=== PATIENT | male | born 1970 | race Caucasian/White ===

== ENCOUNTER 2022-04-03 16:50 | Inpatient (IN) | payer OTHER ==
[~2022-04-03] VITALS: Ht 177.8 cm; Wt 64.0 kg
[2022-04-03] VITALS (10 sets, daily range): BP systolic 117–133; BP diastolic 82–88
[~2022-04-03 16:50] MED LIST: SUCCINYLCHOLINE CHLORIDE 200 MG/10 ML VIAL IV ONE
[2022-04-03] MEDS ORDERED: NALOXONE 2 MG/2 ML SYRINGE ONE ×2 (16:56→17:01)
[2022-04-03] MEDS ORDERED: SUCCINYLCHOLINE CHLORIDE 200 MG/10 ML VIAL IV ONE (17:15)
[2022-04-03] MEDS ORDERED: IV NORMAL SALINE 1000 ML BAG IV ONE (17:15)
[2022-04-03] MEDS ORDERED: NALOXONE HCL 0.4 MG/ML AMPUL IV ONE (17:15)
--- NOTE | 2022-04-03 17:25 | NUR ---
Pt out of ER for Ct sca, accompained by RT and RN.
[2022-04-03] MEDS ORDERED: NALOXONE 2 MG/2 ML SYRINGE IV ONE (17:26)
[2022-04-03] MEDS ORDERED: PROPOFOL 100 ML IV ONE (17:30)
[2022-04-03] MEDS ORDERED: DEXTROSE 50% 50 ML DISP.SYRIN IV ONE (17:30)
--- NOTE | 2022-04-03 17:35 | NUR ---
PT WAS INTUBATED BY DR RICARDO (ETT 7.5 , SECURED 23CM, AC 20, Vt 500, PEEP 5, FO2 100%). PT TOLERATED TO PROCEDURE WITHOUT COMPLICATIONS . CONTINUE TO MONITOR THE PT.
[2022-04-03 17:47] LABS: CARBON DIOXIDE 19 mmol/L (21-32); CHLORIDE 104 mmol/L (98-107); CREATININE 2.6 mg/dL (0.6-1.3); GLUCOSE 67 mg/dL (74-106); UREA NITROGEN, BLOOD 18 mg/dL (7-18)
[2022-04-03 17:51] LABS: MEAN CORPUSCULAR HEMOGLOBIN 28.6 uug (23.8-33.4); MEAN CORPUSCULAR VOLUME 88.1 fL (73.0-96.2); PLATELET COUNT (AUTO) 283 K/uL (152-348)
[2022-04-03] MEDS ORDERED: DEXTROSE 50% 50 ML DISP.SYRIN ONE (17:51)
[2022-04-03] MEDS ORDERED: PROPOFOL 100 ML ONE (17:52)
[2022-04-03 17:53] LABS: ACETAMINOPHEN < 0.0 ug/mL (10-30); ALANINE AMINOTRANSFERASE 401 U/L (16-63); ALKALINE PHOSPHATASE 92 U/L (50-136); ASPARTATE AMINOTRANSFERASE 586 U/L (15-37); BILIRUBIN,DIRECT 0.2 mg/dL (0.0-0.2); BILIRUBIN,TOTAL 0.4 mg/dL (0.2-1.0); TOTAL PROTEIN, SERUM 7.1 g/dL (6.4-8.2)
[2022-04-03 18:04] LABS: ABG BASE EXCESS -17.2 mmol/L; ABG HCO3 10.5 mmol/L; ABG PCO2 31.4 mmHg (35.0-45.0); ABG PH 7.142 (7.350-7.450); ABG SITE RIGHT RADIAL; ABG TOTAL HEMOGLOBIN 17.5 G/dL (13.5-18.0); COHb 1.7 % (0.5-1.5); MetHb 0.4 % (0.0-1.5); O2Hb 91.8 % (94.0-97.0); VENT MODE VENT - A/C; VT, ABG 500 mL
[2022-04-03 18:05] LABS: ETHANOL 23 MG/DL (0-0)
[2022-04-03] MEDS ORDERED: IV NS 1000 ML 1,000 ML IV ONE (18:15)
[2022-04-03] MEDS ORDERED: NOREPINEPHRINE BITARTRATE 8 MG in IV NORMAL SALINE 242 ML IV PRN (18:45)
[2022-04-03] MEDS ORDERED: ACETAMINOPHEN 650 MG SUPP.RECT RC PRN (18:45)
[2022-04-03] MEDS ORDERED: ONDANSETRON 4 MG/2 ML VIAL IV PRN (18:45)
--- NOTE | 2022-04-03 19:08 | NUR ---
REPORT WAS GIVEN TO [employer] GUIDES ARLETH MOORE.
--- NOTE | 2022-04-03 19:20 | NUR ---
Recieved handoff report from ARLETH Vicente for continuity of care. Patient was BIB friend for respiratory disress. According to report patient has overdosed on unknown substance. Patient immediately needed intubation. 7.5, 23@the lip. AC20 VT500 PEEP5 FIO2 100%. Patient currently receiving IVF, and propofol at 5mcg/kg. Awaiting for pharmacy to compound levophed.
[2022-04-03 19:35] LABS: *BILIRUBIN,URIN NEGATIVE (NEGATIVE); *BLOOD, URINE 2+ (NEGATIVE); *CLARITY,URINE CLEAR (CLEAR); *COLOR,URINE YELLOW (YELLOW); *KETONES,URINE NEGATIVE (NEGATIVE); *UROBILINOGEN,URINE 0.2 E.U./dl (NORMAL); LEUKOCYTE ESTERASE ,URINE NEGATIVE (NEGATIVE); NITRITE, URINE NEGATIVE (NEGATIVE); UGLUCOSE NEGATIVE (NEGATIVE)
[2022-04-03 19:44] LABS: RBC,URINE 0-3 /HPF (0-3); WBC,URINE 0-3 /HPF (0-3)
[2022-04-03 19:45] LABS: BACTERIA,URINE FEW /HPF (NONE SEEN); SQUAMOUS EPITHELIAL CELL,UR FEW /HPF (NONE SEEN)
[2022-04-03] MEDS: NOREPINEPHRINE BITARTRATE 32 MG in IV NORMAL SALINE 218 ML IV PRN (19:45)
[2022-04-03 19:47] LABS: *AMPHETAMINE, URINE NEGATIVE (NEGATIVE); *CANNABINOID, URINE NEGATIVE (NEGATIVE); *COCCAINE, URINE POSITIVE (NEGATIVE); *OPIATE, URINE NEGATIVE (NEGATIVE); *PHENCYCLIDINE SCREEN,URINE NEGATIVE (NEGATIVE)
--- NOTE | 2022-04-03 20:00 | NUR ---
Triple lumen CVC established and performed by LUDMILA Acharya.
--- NOTE | 2022-04-03 21:05 | NUR ---
Patient's Levophed currently running at 0.5 with great MAP. Propofol infusing @ 20mcg. Tolerating infusions well.
--- NOTE | 2022-04-03 21:30 | NUR ---
Received report from ARLETH [facility] ED. Patient was transported from ED to CCU 3 Dx Drug overdose, Acute toxic encephalopathy via gurney accompanied by 3 staff members, without any incident. Transferred to hospital bed via draw sheet method. Placed on patient monitor, NSR with vital signs of T=98.1, HR=97, QW=243/84, O2 sat 93%. Patient is sedated, responsive to stimuli, on vent ET 7.5, LL 23 with settings of AC 20, TV 500, PEEP 10, FiO2 100%. Cough, and gag reflex noted. IV lines RH20G, RAC 19G, LH 19G, R femoral TLC patent and flushed, with ongoing IV fluids Propofol 20 mcg/kg/min, Levo @ 0.6mcg/kg/min. Martines catheter draining well to gravity. Body assessment done. Patient's belongings checked and placed at bedside. Safety measures on at all times. Will continue to monitor closely.
--- NOTE | 2022-04-03 21:34 | NUR ---
Patient transported to CCU in stable condition. Handoff report given to ARLETH Nance
[2022-04-03] MEDS: PANTOPRAZOLE SODIUM 40 MG VIAL IV SCH (21:35)
--- NOTE | 2022-04-03 21:35 | NUR ---
Spoke with Dr Tobin via telephone with new orders. Per Dr. Tobin, order sputum culture, chest xray, and ABG 7am. Noted and carried out.
[2022-04-03] MEDS: SODIUM BICARBONATE 8.4% 100 MEQ in IV NS 1000 ML 1,000 ML IV PRN (21:45)
--- NOTE | 2022-04-03 22:00 | NUR ---
NG inserted at right nare, and clamped.
--- NOTE | 2022-04-03 22:45 | NUR ---
FiO2 decreased to 80% c/o RT Lee Ann, tolerating well, O2 sat 99%. Will continue to monitor closely.
--- NOTE | 2022-04-03 22:48 | NUR ---
Patient was received orally intubated with 7.5 ET Tube ~ 23cm @ the teeth on mechanical ventilation with settings of AC 20, 500, +5 100%. Called to ED at beginning of shift for low saturation. Upon initial assessment, patient was posturing with noted agitation. Sustained low SpO2 reading~ 84%. Increased Peep to 10+ per MD Acharya. SpO2 now 92-94% on AC 20, 500,+10, and now 80%. Will titrate FiO2 as tolerated. Suctioned moderate amounts of thick balbuena/ with pink tinged secretions. Alarm parameters assessed: on/ audible. Ambu bag at bedside. Vent plugged in to red outlet. No SOB noted at this time. Will continue to monitor throughout shift.
[2022-04-03] MEDS ORDERED: PIPERACILLIN SODIUM/TAZO 3.375 GM VIAL ONE (22:54)
[2022-04-03] MEDS ORDERED: VANCOMYCIN HCL 500 MG VIAL ONE (22:54)
[2022-04-03] MEDS ORDERED: VANCOMYCIN 1000 MG VIAL ONE (22:54)
[2022-04-03] MEDS: PIPERACILLIN SODIUM/TAZOBACTAM 3.375 G in IV DEXTROSE 5% 50 ML IV SCH (23:04)
[2022-04-03] MEDS ORDERED: VANCOMYCIN IV 1,500 MG in IV NORMAL SALINE 500 ML IV ONE (23:30)
[2022-04-04] VITALS (64 sets, daily range): BP systolic 93–146; BP diastolic 54–96
[2022-04-04] MEDS ORDERED: PIPERACILLIN SODIUM/TAZOBACTAM 3.375 G in IV DEXTROSE 5% 50 ML IV SCH ×2
--- NOTE | 2022-04-04 01:15 | NUR ---
FiO2 decreased to 65% c/o RT Lee Ann, tolerating well, O2 sat 100%. Will continue to monitor closely.
[2022-04-04] MEDS: PROPOFOL 100 ML IV PRN ×2 (01:23→21:19)
[2022-04-04] MEDS ORDERED: PIPERACILLIN/TAZOBACTAM/D5W 50 ML IV ONE (01:53)
--- NOTE | 2022-04-04 05:00 | NUR ---
AM care done. Linen changed.
[2022-04-04 05:11] LABS: HEMATOCRIT 51.2 % (36.7-47.1); MEAN CORPUSCULAR HEMOGLOBIN 29.2 uug (23.8-33.4); MEAN CORPUSCULAR VOLUME 85.2 fL (73.0-96.2); PLATELET COUNT (AUTO) 322 K/uL (152-348)
[2022-04-04 05:17] LABS: BILIRUBIN,TOTAL 1.2 mg/dL (0.2-1.0); CREATININE 2.2 mg/dL (0.6-1.3); MAGNESIUM 1.9 mg/dL (1.8-2.4); PHOSPHOROUS 5.2 mg/dL (2.5-4.9); POTASSIUM 4.7 mmol/L (3.5-5.1); TOTAL PROTEIN, SERUM 7.2 g/dL (6.4-8.2)
[2022-04-04] MEDS: PIPERACILLIN SODIUM/TAZOBACTAM 3.375 G in IV DEXTROSE 5% 50 ML IV SCH (05:38)
[2022-04-04] MEDS ORDERED: NOREPINEPHRINE BITARTRATE 4 MG/4 ML VIAL IV ONE (05:50)
[2022-04-04] MEDS: NOREPINEPHRINE BITARTRATE 32 MG in IV NORMAL SALINE 218 ML IV PRN (06:08)
[2022-04-04 06:14] LABS: ABG BASE EXCESS -6.4 mmol/L; ABG HCO3 18.7 mmol/L; ABG PCO2 36.5 mmHg (35.0-45.0); ABG PH 7.327 (7.350-7.450); ABG SITE LEFT RADIAL; ABG TOTAL HEMOGLOBIN 16.8 G/dL (13.5-18.0); COHb 0.5 % (0.5-1.5); MetHb 0.4 % (0.0-1.5); O2Hb 93.1 % (94.0-97.0); VENT MODE VENT - A/C; VT, ABG 500 mL
--- NOTE | 2022-04-04 06:17 | NUR ---
FiO2 increased to 75% c/o RT Lee Ann, tolerating well, O2 sat 100%. Will continue to monitor closely.
--- NOTE | 2022-04-04 07:00 | NUR ---
Received pt. on ventilator ETT 7.5 23LL. no tachypnea with saturation above 95%. Pupils pin-pointing but DELISA. gag reflex absent cough reflex weak. pulmonary services Dr. Tobin in the unit. Received pt. on levophed running at 0.4mcg/kg/min. sbp within desired limits. NG clamped, and hobson to gravity. IV access patent.
--- NOTE | 2022-04-04 07:10 | NUR ---
Respiratory services, Dr. Tobin in the unit to see and examine pt. report given by Lee Ann Burdick Dr. in during shift report. At this time pt. taken off sedation. Pupils pin-pointing but DELISA. gag reflex absent cough reflex weak.
--- NOTE | 2022-04-04 07:56 | NUR ---
Cough&Gag reflex present. Patient tachypneic RR mid-20's and tachycardic HR in the mid to upper 120.s. .
--- NOTE | 2022-04-04 07:57 | NUR ---
Patient received on cont. oswald vent with given settings of AC RR 20, Vt 500, PEEP +10, 75% Fio2. ETT is secured via anchorfast at approx 23cm at the lip. Oral care and PRN sxn provided. Alarms on and audible. Ventilator plugged into red outlets. Ambubag at bedside. Will continue to monitor throughout shift.
[2022-04-04] MEDS: SODIUM BICARBONATE 8.4% 100 MEQ in IV NS 1000 ML 1,000 ML IV PRN (08:05)
[2022-04-04] MEDS: PANTOPRAZOLE SODIUM 40 MG VIAL IV SCH ×2 (08:05→20:13)
[2022-04-04] MEDS: HEPARIN SODIUM,PORCINE 5,000 UNITS/ML VIAL SQ SCH ×2 (08:06→20:28)
[2022-04-04] MEDS: SODIUM BICARBONATE 8.4% 100 MEQ in IV D5W 1000ML 1,000 ML IV PRN ×2 (09:37→17:34)
--- NOTE | 2022-04-04 09:46 | NUR ---
Bedside report given to Heavenly Durand.
--- NOTE | 2022-04-04 09:50 | NUR ---
critical value received from lab for troponin as 732, no new orders received from high school guidance counselor
--- NOTE | 2022-04-04 10:00 | NUR ---
Received report on patient from ARLETH Lezama. Received pt. on ventilator ETT 7.5, 23 at [facility]. respirations at 20 with saturation above 95%. pt. on levophed running at 0.1 mcg/kg/min. blood pressure within desired limits. NG clamped, and hobson to gravity. IV access patent with IV fluids running as ordered.
[2022-04-04] MEDS: PIPERACILLIN SODIUM/TAZOBACTAM 3.375 G in IV DEXTROSE 5% 100 ML IV SCH ×2 (13:53→21:14)
--- NOTE | 2022-04-04 14:45 | NUR ---
pt off levo, sustaining bp at desired level, will continue to monitor.
--- NOTE | 2022-04-04 15:20 | NUR ---
metal wire technician at bedside, will continue to monitor
--- NOTE | 2022-04-04 15:20 | NUR ---
started pt on propofol, pt was getting agitated, intermittent biting on ETT and kicking legs.
--- NOTE | 2022-04-04 18:54 | NUR ---
pt sustaining bp with MAP above 60 without pressors, pt on propofol at 10mcg, calm and sedated. ETT 7.2, 23 at lipline, AC 20, TV 500, Peep 10, FiO2 50%. hobson output 800 on my shift, pt NPO, sinus, IV access patent and intatc, will endorse to oncoming nurse.
--- NOTE | 2022-04-04 19:30 | NUR ---
ROUNDS MADE PATIENT IN BED ,ORALLY INTUBATED 7.5, ETT 23 AC 20/500/ PEEP 10 FIO2 50%.SUCTION VIA ETT AND VIA MOUTH MINIMAL TO SMALL SECRETIONS . SEDATED ON PROPOFOL . PATIENT TOLERATING VENT SETTING SATURATING 99 TO 100% RR 20. AFEBRILE 98.8 F.SR ON THE HEART MONITOR .
[2022-04-04] MEDS ORDERED: NOREPINEPHRINE BITARTRATE 8 MG in IV NORMAL SALINE 242 ML IV PRN (20:00)
--- NOTE | 2022-04-04 20:00 | NUR ---
INCREASES PROPOFOL C/O PATIENT BITTING THE ETT TUBE AND MOVING BLE ,PATIENT EDUCATED AND DOESN'T FOLLOW COMMANDS .
--- NOTE | 2022-04-04 20:15 | NUR ---
ID CASINO CASHIER NERA CAME AND VISITED PATIENT UPDATED CASINO CASHIER PATIENTS CONDITION .V/S MEDICATION AND LINES .
--- NOTE | 2022-04-04 21:30 | NUR ---
COLLECTED URINE AND SEND TO LAB ,FOR URINE SODIUM,UA,PROTEIN .
[2022-04-05] VITALS (24 sets, daily range): BP systolic 92–116; BP diastolic 56–75
[2022-04-05] MEDS: SODIUM BICARBONATE 8.4% 100 MEQ in IV D5W 1000ML 1,000 ML IV PRN ×3 (00:57→19:05)
[2022-04-05] MEDS: PROPOFOL 100 ML IV PRN ×4 (02:59→21:04)
[2022-04-05 03:26] LABS: *BILIRUBIN,URIN NEGATIVE (NEGATIVE); *BLOOD, URINE NEGATIVE (NEGATIVE); *COLOR,URINE YELLOW (YELLOW); *KETONES,URINE NEGATIVE (NEGATIVE); LEUKOCYTE ESTERASE ,URINE NEGATIVE (NEGATIVE); NITRITE, URINE NEGATIVE (NEGATIVE); PH,URINE 7.5 (5.0-8.0); UGLUCOSE NEGATIVE (NEGATIVE)
[2022-04-05 03:28] LABS: *CLARITY,URINE HAZY (CLEAR)
[2022-04-05 03:40] LABS: *CREATININE,URINE 182.6 mg/dL (30-125); *URINE TOTAL PROTEIN RANDOM 35.8 mg/dL (<150/24HR)
[2022-04-05 03:45] LABS: BACTERIA,URINE NONE SEEN /HPF (NONE SEEN); RBC,URINE 0-3 /HPF (0-3); SQUAMOUS EPITHELIAL CELL,UR FEW /HPF (NONE SEEN); WBC,URINE 0-3 /HPF (0-3)
[2022-04-05] MEDS: PIPERACILLIN SODIUM/TAZOBACTAM 3.375 G in IV DEXTROSE 5% 100 ML IV SCH ×3 (05:08→21:03)
[2022-04-05 05:19] LABS: HEMATOCRIT 40.1 % (36.7-47.1); MEAN CORPUSCULAR HEMOGLOBIN 29.2 uug (23.8-33.4); MEAN CORPUSCULAR VOLUME 83.9 fL (73.0-96.2); PLATELET COUNT (AUTO) 148 K/uL (152-348)
[2022-04-05 05:48] LABS: BILIRUBIN,TOTAL 1.4 mg/dL (0.2-1.0); CREATININE 1.1 mg/dL (0.6-1.3); POTASSIUM 3.1 mmol/L (3.5-5.1); TOTAL PROTEIN, SERUM 5.7 g/dL (6.4-8.2)
[2022-04-05] MEDS ORDERED: REMEDY ESSENTIAL ZINC PASTE 113 GM TOP PRN (06:00)
[2022-04-05] MEDS ORDERED: POTASSIUM CHLORIDE 20 MEQ POWDER PACKET GT ONE (06:15)
[2022-04-05 06:27] LABS: ABG BASE EXCESS 3.7 mmol/L; ABG HCO3 25.2 mmol/L; ABG PCO2 29.4 mmHg (35.0-45.0); ABG PH 7.551 (7.350-7.450); ABG PO2 77.3 mmHg (75.0-100.0); ABG SITE LEFT RADIAL; ABG TOTAL HEMOGLOBIN 14.2 G/dL (13.5-18.0); COHb 0.3 % (0.5-1.5); MetHb 0.2 % (0.0-1.5); O2Hb 95.9 % (94.0-97.0); VENT MODE VENT - A/C; VT, ABG 500 mL
[2022-04-05] MEDS: POTASSIUM CHLORIDE 50 ML IV SCH ×4 (06:51→09:35)
[2022-04-05] MEDS ORDERED: VANCOMYCIN IV 1,250 MG in IV DEXTROSE 5% 250 ML IV ONE (08:00)
[2022-04-05] MEDS ORDERED: VANCOMYCIN IV 1,250 MG in IV DEXTROSE 5% 250 ML IV SCH (08:00)
[2022-04-05] MEDS: PANTOPRAZOLE SODIUM 40 MG VIAL IV SCH ×2 (08:20→20:32)
[2022-04-05] MEDS: REMEDY ESSENTIAL ZINC PASTE 113 GM TOP SCH ×2 (08:20→20:33)
[2022-04-05] MEDS: HEPARIN SODIUM,PORCINE 5,000 UNITS/ML VIAL SQ SCH ×2 (08:21→21:01)
--- NOTE | 2022-04-05 09:18 | NUR ---
RECEIVED PT ON A/C 20 500 PEEP+10 FIO2 50% TIRTATED FIO2 DOWN TO 40%. CHANGED PEEP DOWN TO PEEP OF 8 PER MD ORDERS. PT SHAE WELL AT THIS TIME.
[2022-04-05] MEDS ORDERED: NEUTRA PHOS PACKET NG ONE (15:30)
[2022-04-05] MEDS: ACETAMINOPHEN 650 MG/20.3 ML LIQUID UDC GT PRN ×2 (15:48→22:00)
[2022-04-05 17:08] LABS: PHOSPHOROUS 2.1 mg/dL (2.5-4.9)
--- NOTE | 2022-04-05 17:57 | NUR ---
patient has been titrated down on vent from 50& fio2 and peep of 10 to end of shift 35% fio2 and peep of 5. Patient saturates 97% tolerating well changes. dietary consult was done started on feedings with Jevity 1.2 @ 10ml initially starting rate to increase by 10ml to 20ml q8 hours as tolerated. social insurance analyst also to follow up with contacting family members.
[2022-04-05] MEDS: JEVITY 1.2 1000 ML LIQUID NG PRN (21:53)
--- NOTE | 2022-04-05 22:09 | NUR ---
GIVEN TYLENOL PRN C/O TEMP 100.0 F COOLING MEASURES DONE PLACED ICE PACKS TO BILATERAL ARM PIT AND GROIN AREA .
[2022-04-06] VITALS (15 sets, daily range): BP systolic 93–114; BP diastolic 55–77
[2022-04-06] MEDS: PROPOFOL 100 ML IV PRN ×7 (02:08→23:36)
--- NOTE | 2022-04-06 04:28 | NUR ---
PATIENT ON CONT BRUCE VENT WITH 7.5 ET/TUBE IN PLACE AND SECURED WITH ANCHOR FAST, MOVE Q2 HOURS, PT IS SEDATED, DOES COUGH AND HAS SLIGHT BLOODY TINGE SECRETIONS, AND LAVAGED WITH NS, NO VENT CHANGES MADE, ORAL CARE DONE, CURRENT VENT SETTINGS, A/C 20,500ML, PEEP5, FIO2 @ 35%,MOSTLY WITH CONTROLLED VENTILATION, CHANGE HME, ABG DUE BEFORE 0700. Clifton CARBAJALP Addendum: 04/06/22 at 0431 by STAR SHERIDAN RT Amended: Links added.
[2022-04-06 05:06] LABS: HEMATOCRIT 41.1 % (36.7-47.1); MEAN CORPUSCULAR VOLUME 84.1 fL (73.0-96.2); PLATELET COUNT (AUTO) 154 K/uL (152-348)
[2022-04-06 05:15] LABS: BILIRUBIN,DIRECT 1.2 mg/dL (0.0-0.2); BILIRUBIN,TOTAL 2.7 mg/dL (0.2-1.0); CREATININE 1.1 mg/dL (0.6-1.3); MAGNESIUM 1.8 mg/dL (1.8-2.4); PHOSPHOROUS 2.5 mg/dL (2.5-4.9); POTASSIUM 3.4 mmol/L (3.5-5.1); TOTAL PROTEIN, SERUM 6.1 g/dL (6.4-8.2)
[2022-04-06] MEDS: SODIUM BICARBONATE 8.4% 100 MEQ in IV D5W 1000ML 1,000 ML IV PRN ×2 (05:16→16:10)
[2022-04-06] MEDS: PIPERACILLIN SODIUM/TAZOBACTAM 3.375 G in IV DEXTROSE 5% 100 ML IV SCH ×3 (05:16→21:22)
[2022-04-06] MEDS: REMEDY ESSENTIAL ZINC PASTE 113 GM TOP SCH ×2 (05:16→20:34)
[2022-04-06 05:59] LABS: ABG BASE EXCESS 0.4 mmol/L; ABG HCO3 23.2 mmol/L; ABG PCO2 32.6 mmHg (35.0-45.0); ABG PH 7.471 (7.350-7.450); ABG PO2 67.7 mmHg (75.0-100.0); ABG SITE LEFT RADIAL; ABG TOTAL HEMOGLOBIN 14.5 G/dL (13.5-18.0); COHb 0.6 % (0.5-1.5); MetHb 0.1 % (0.0-1.5); VENT MODE VENT - A/C; VT, ABG 500 mL
[2022-04-06] MEDS ORDERED: POTASSIUM CHLORIDE 20 MEQ POWDER PACKET GT ONE ×2 (07:15→09:15)
[2022-04-06] MEDS: PANTOPRAZOLE SODIUM 40 MG VIAL IV SCH ×2 (09:04→20:33)
[2022-04-06] MEDS: HEPARIN SODIUM,PORCINE 5,000 UNITS/ML VIAL SQ SCH ×2 (09:04→20:35)
[2022-04-06] MEDS: ACETAMINOPHEN 650 MG/20.3 ML LIQUID UDC GT PRN ×2 (13:14→22:46)
--- NOTE | 2022-04-06 13:18 | NUR ---
low grade fever, cooling measures initiated and tylenol given, will continue to monitor.
--- NOTE | 2022-04-06 13:25 | NUR ---
Pt received on continuous mechanical ventilation via 7.5 ETT secured at 23cm @ the lip. Pt rec'd on Wilson vent with ordered settings of A/C 20, VT 500, PEEP +5, FIO2 35% . Pt tolerating vent settings well. No signs or symptoms or respiratory distress noted. Bag/valve/mask at bedside. HME changed. Vent plugged into emergency red outlet. Will continue to monitor.
--- NOTE | 2022-04-06 13:26 | NUR ---
Discharge planning consult requested for search for family contacts. Pt. is a 51-year-old male who was admitted to [facility] on 04/03/2022 for respiratory failure. communications planner went to meet with pt. in the CCU. Pt. was intubated and sedated. Pt.s person to notify is Christopher ([phone]). communications planner called Christopher ([phone]) who stated that he does not have much information on the pt. Christopher [phone] stated that the pt. has family in [place] and a mother in [place]. Christopher ([phone]) stated that the pt. may be on parole. communications planner called the [facility] ([phone]) to gather information on the pt. The [facility] ([phone]) stated that they had no history of this pt. in their system. communications planner was unable to find any further family contact information about the pt. Information provided to Diann.
--- NOTE | 2022-04-06 19:39 | NUR ---
Report given to ARLETH Du. SR at 67. Sedated and intubated; settings are as follows TV at 400, PEEP of 5, rate or 14 and FiO2 30%. NGT feeding Jevity 1.2, tolerating well with small amount of residual. Martines care provided, good urine output- clear and yellow color. jail assessment done, no new skin break down noted. Safety and comfort measures maintained t/o shift. All meds given as ordered. Addendum: 04/06/22 at 1948 by LESLIE CACERES RN VENT SETTINGS: Rate of 20, TV 500, PEEP 5 and 30% FiO2.
--- NOTE | 2022-04-06 20:00 | NUR ---
ROUNDS MADE PATIENT IN BED ORALLY INTUBATED 20/500/PEEP 5 FIO2 30%.MO RESPIRATORY DISTRESS ,SATURATION 100%.
[2022-04-06] MEDS: LORAZEPAM 2 MG/1 ML VIAL IV PRN (20:46)
--- NOTE | 2022-04-06 20:48 | NUR ---
Patient received orally intubated with a 7. Ettube ~ 23cm lipline. Currently tolerating vent settings of AC 20, 500, +5peep, 30% FiO2. No signs of respiratory distress noted at this time. Suctioned small to moderate amounts of thick balbuena secretions, no SOB noted. Alarm parameters assessed: on/audible. Vent plugged in to red outlet. Ambubag at bedside. Will continue to monitor throughout shift.
[2022-04-06] MEDS: POTASSIUM CHLORIDE 20 MEQ in IV NS 1000 ML 1,000 ML IV PRN (21:24)
--- NOTE | 2022-04-06 21:30 | NUR ---
SUCTION VIA ETT AND VIA MOUTH MINIMAL SECRETIONS VIA THE ETT,ORALLY LARGE .WHEN OFF SEDATION PATIENT KEEPS ON COUGHING VERY STRONG COUGH AND GAG REFLEX . PROPOFOL ADJUSTED ACCORDING TO COMFORT . TF IN PROGRESS JEVITY AT 40 ML/HR GOAL AT 65 ML/HR .
--- NOTE | 2022-04-06 22:08 | NUR ---
GIVEN PRN ATIVAN ,PATIENT RR 30 AND KEEPS BITING THE ETT WILL MONITOR TO REDUCED THE PROPOFOL RATE TOLERATED .
[2022-04-07] VITALS (24 sets, daily range): BP systolic 93–126; BP diastolic 57–84
--- NOTE | 2022-04-07 | NUR ---
TURNED AND REPOSITION PATIENT ,OFFLOADED BACK WITH PILLOWS AND ELEVATED UPPER AND LOWER EXTREMITIES WITH PILLOWS ,SCDS USED TO BILATERAL LOWER LEGS.
[2022-04-07] MEDS: PROPOFOL 100 ML IV PRN ×7 (02:26→21:42)
--- NOTE | 2022-04-07 04:30 | NUR ---
AM CARE DONE BATH PATIENT CHANGED SOILED LINENS AND GOWN . ESPARZA CARE DONE AND ORAL CARE .
[2022-04-07 04:56] LABS: HEMATOCRIT 39.8 % (36.7-47.1); MEAN CORPUSCULAR HEMOGLOBIN 28.9 uug (23.8-33.4); MEAN CORPUSCULAR VOLUME 84.5 fL (73.0-96.2); PLATELET COUNT (AUTO) 152 K/uL (152-348)
[2022-04-07] MEDS: PIPERACILLIN SODIUM/TAZOBACTAM 3.375 G in IV DEXTROSE 5% 100 ML IV SCH ×3 (05:19→21:24)
[2022-04-07 06:02] LABS: BILIRUBIN,DIRECT 1.7 mg/dL (0.0-0.2); BILIRUBIN,TOTAL 2.6 mg/dL (0.2-1.0); CREATININE 1.1 mg/dL (0.6-1.3); MAGNESIUM 1.9 mg/dL (1.8-2.4); PHOSPHOROUS 4.2 mg/dL (2.5-4.9); POTASSIUM 3.5 mmol/L (3.5-5.1); TOTAL PROTEIN, SERUM 6.1 g/dL (6.4-8.2)
[2022-04-07 06:28] LABS: ABG BASE EXCESS -4.2 mmol/L; ABG PCO2 26.2 mmHg (35.0-45.0); ABG PH 7.455 (7.350-7.450); ABG PO2 72.9 mmHg (75.0-100.0); ABG SITE LEFT RADIAL; ABG TOTAL HEMOGLOBIN 14.2 G/dL (13.5-18.0); COHb 0.6 % (0.5-1.5); MetHb 0.2 % (0.0-1.5); O2Hb 94.1 % (94.0-97.0); VENT MODE VENT - A/C; VT, ABG 500 mL
[2022-04-07 07:06] LABS: ALBUMIN 2.6 g/dL (2.9-4.4); ALPHA-1-GLOBULIN 0.2 g/dL (0.0-0.4); ALPHA-2-GLOBULIN 0.6 g/dL (0.4-1.0); BETA GLOBULIN 0.8 g/dL (0.7-1.3); GAMMA GLOBULIN 0.9 g/dL (0.4-1.8); GLOBULIN, TOTAL 2.6 g/dL (2.2-3.9); M-SPIKE Not Observed g/dL (Not Observed)
--- NOTE | 2022-04-07 08:15 | NUR ---
PT.WAS SEEN BY WITH NEW ORDERS.
[2022-04-07] MEDS: REMEDY ESSENTIAL ZINC PASTE 113 GM TOP SCH ×2 (08:36→21:28)
[2022-04-07] MEDS: PANTOPRAZOLE SODIUM 40 MG VIAL IV SCH (08:36)
[2022-04-07] MEDS: HEPARIN SODIUM,PORCINE 5,000 UNITS/ML VIAL SQ SCH ×2 (08:36→21:25)
[2022-04-07] MEDS: JEVITY 1.2 1000 ML LIQUID NG PRN (08:52)
[2022-04-07] MEDS: POTASSIUM CHLORIDE 20 MEQ in IV NS 1000 ML 1,000 ML IV PRN (10:05)
--- NOTE | 2022-04-07 16:20 | NUR ---
family at beside,updated with pt.condition and plan of care.
--- NOTE | 2022-04-07 18:52 | NUR ---
Pt. was seen by .
[2022-04-07] MEDS: PANTOPRAZOLE ORAL SUSPENSION 40 MG SUSPDR.PKT NG SCH (21:26)
[2022-04-08] VITALS (22 sets, daily range): BP systolic 98–143; BP diastolic 57–88
[2022-04-08] MEDS: PROPOFOL 100 ML IV PRN ×6 (02:14→21:55)
[2022-04-08] MEDS: POTASSIUM CHLORIDE 20 MEQ in IV NS 1000 ML 1,000 ML IV PRN ×2 (02:19→16:38)
[2022-04-08 05:23] LABS: CREATININE 0.9 mg/dL (0.6-1.3); MAGNESIUM 1.9 mg/dL (1.8-2.4); PHOSPHOROUS 3.8 mg/dL (2.5-4.9); POTASSIUM 3.8 mmol/L (3.5-5.1)
[2022-04-08 05:34] LABS: HEMATOCRIT 42.4 % (36.7-47.1); MEAN CORPUSCULAR HEMOGLOBIN 29.4 uug (23.8-33.4); MEAN CORPUSCULAR VOLUME 84.4 fL (73.0-96.2); PLATELET COUNT (AUTO) 168 K/uL (152-348)
[2022-04-08] MEDS: PIPERACILLIN SODIUM/TAZOBACTAM 3.375 G in IV DEXTROSE 5% 100 ML IV SCH ×3 (06:39→21:10)
[2022-04-08 07:19] LABS: ABG BASE EXCESS -3.8 mmol/L; ABG HCO3 17.5 mmol/L; ABG PCO2 23.6 mmHg (35.0-45.0); ABG PH 7.487 (7.350-7.450); ABG PO2 68.7 mmHg (75.0-100.0); ABG SITE LEFT RADIAL; ABG TOTAL HEMOGLOBIN 14.7 G/dL (13.5-18.0); COHb 0.6 % (0.5-1.5); MetHb 0.2 % (0.0-1.5); O2Hb 93.4 % (94.0-97.0); VENT MODE VENT - A/C; VT, ABG 500 mL
--- NOTE | 2022-04-08 08:24 | NUR ---
Pt. was seen by
[2022-04-08] MEDS: REMEDY ESSENTIAL ZINC PASTE 113 GM TOP SCH ×2 (08:46→20:05)
[2022-04-08] MEDS: JEVITY 1.2 1000 ML LIQUID NG PRN (08:46)
[2022-04-08] MEDS: PANTOPRAZOLE ORAL SUSPENSION 40 MG SUSPDR.PKT NG SCH ×2 (08:47→20:05)
[2022-04-08] MEDS: HEPARIN SODIUM,PORCINE 5,000 UNITS/ML VIAL SQ SCH ×2 (08:48→20:04)
--- NOTE | 2022-04-08 10:19 | NUR ---
Pt.was seen by . with new orders.
--- NOTE | 2022-04-08 18:46 | NUR ---
Pt. was seen by .
[2022-04-08] MEDS: LORAZEPAM 2 MG/1 ML VIAL IV PRN (20:04)
--- NOTE | 2022-04-08 20:04 | NUR ---
PATIENT RR 28 HYPERVENTILATING OVER THE VENTILATOR TACHYPNEIC GIVEN PRN ATIVAN .ETT AC 14/500/30% PEEP 5 MINIMAL SECRETIONS VIA ETT ,MODERATE TO LARGE ORALLY . SR TO SB ON THE HEART MONITOR . RIGHT NARE NGT TF IN PROGRESS JEVITY 60 ML/HR CHECKED RESIDUAL VERY SMALL 10 ML ONLY FLUSHED NGT . WILL CONTINUE TO MONITOR V/S ,VENT ,SEDATION .
[2022-04-08] MEDS: ACETAMINOPHEN 650 MG/20.3 ML LIQUID UDC GT PRN (23:18)
--- NOTE | 2022-04-08 23:18 | NUR ---
GIVEN PRN TYLENOL C/O PAIN PATIENT RR 28 AND COUGHING VERY HARD AND BITING ETT .SUCTION VIA ETT AND VIA MOUTH . CONTINUE TO MONITOR V/S LEVELS OF COMFORT .
[2022-04-09] VITALS (24 sets, daily range): BP systolic 93–130; BP diastolic 53–74
--- NOTE | 2022-04-09 02:00 | NUR ---
TURNED AND REPOSITION PATIENT, SUCTION PATIENT VIA ETT AND VIA MOUTH WITH STRONG COUGH AND POSITIVE GAG REFLEX
[2022-04-09] MEDS: PROPOFOL 100 ML IV PRN ×7 (02:04→21:33)
--- NOTE | 2022-04-09 03:30 | NUR ---
MORNING CARE DONE ,BATH PATIENT ,CHANGED SOILED LINENS AND GOWN . F/C AND ORAL CARE DONE . TURNED AND REPOSITION PATIENT OFFLOADED BACK WITH PILLOWS AND HEELS OFFLOADED WITH PILLOW.SCD USED TO BILATERAL HEELS PATIENT ON KCI MATTRESS .
--- NOTE | 2022-04-09 04:26 | NUR ---
PATIENT ON CONT BRUCE VENT WITH 7.[address] SECURED WITH ANCHOR FAST, MOVE Q2 HOURS, SETTINGS,A/C14,500ML,PEEP5, FIO2 @ 30%, NO VENT CHANGES MADE , STRONG COUGH, PT TENDS TO BREATH RAPID, AFTER SUCTIONING HIM, TURNS ARMS SLIGHTLY IN WHEN SUCTIONING: GOOD AERATIONS, SUCTIONED LIGHT PALE YELL TINGE SECRETIONS, AND SUCTION MOUTH WITH YANKAUER, CHANGE HME, NO VENT CHANGES MADE AT THIS TIME, NO ABG ORDER .Clifton CARBAJALP Addendum: 04/09/22 at 0431 by STAR SHERIDAN RT Amended: Links added.
--- NOTE | 2022-04-09 04:30 | NUR ---
JOB PRINTER AT B/S TO DRAW PATIENT AM LABS .PATIENT NO ORDERS FOR AM LABS ADDED LABS FOR THIS MORNING . BASIC LABS . CBC/BMP/MG/PHOS .
--- NOTE | 2022-04-09 05:15 | NUR ---
WORKERS COMPENSATION CONSULTANT AT B/S FOR PORTABLE CHEST XRAY .
[2022-04-09] MEDS: PIPERACILLIN SODIUM/TAZOBACTAM 3.375 G in IV DEXTROSE 5% 100 ML IV SCH ×3 (05:17→21:07)
[2022-04-09 05:31] LABS: HEMATOCRIT 40.8 % (36.7-47.1); MEAN CORPUSCULAR HEMOGLOBIN 28.6 uug (23.8-33.4); MEAN CORPUSCULAR VOLUME 84.3 fL (73.0-96.2); PLATELET COUNT (AUTO) 171 K/uL (152-348)
[2022-04-09 05:50] LABS: CREATININE 0.8 mg/dL (0.6-1.3); MAGNESIUM 1.9 mg/dL (1.8-2.4); PHOSPHOROUS 3.9 mg/dL (2.5-4.9); POTASSIUM 3.7 mmol/L (3.5-5.1)
[2022-04-09] MEDS: POTASSIUM CHLORIDE 20 MEQ in IV NS 1000 ML 1,000 ML IV PRN ×2 (06:03→20:01)
[2022-04-09] MEDS: HEPARIN SODIUM,PORCINE 5,000 UNITS/ML VIAL SQ SCH ×2 (08:32→20:04)
[2022-04-09] MEDS: PANTOPRAZOLE ORAL SUSPENSION 40 MG SUSPDR.PKT NG SCH ×2 (08:37→20:03)
[2022-04-09] MEDS: REMEDY ESSENTIAL ZINC PASTE 113 GM TOP SCH ×2 (08:40→20:04)
[2022-04-09] MEDS: LORAZEPAM 2 MG/1 ML VIAL IV PRN (15:33)
--- NOTE | 2022-04-09 20:00 | NUR ---
patient in bed orally intubated on ac 14/500/30% peep 5, patient on propofol drip for sedation . suction via ett and via mouth patient with very strong cough and gag reflex . tolerating vent saturation 100 % and no s/s of respiratory distress . tf in progress via the right nare ngt on Jevity at 65 cc/hr its at goal . f/c to bsd with good urinary output ,urine yellowish green in color .
[2022-04-09] MEDS: ACETAMINOPHEN 650 MG/20.3 ML LIQUID UDC GT PRN (20:34)
[2022-04-09] MEDS: IV NORMAL SALINE 250 ML IV PRN (20:35)
--- NOTE | 2022-04-09 20:57 | NUR ---
PATIENT ON CONT BRUCE VENT WITH ANCHOR FAST IN PLACE AND SECURED, PT WITH 7.5 ET/TUBE IN PLACE; MOVE Q2 HOURS, VENT SETTINGS, A/C 14,500ML,PEEP5,FIO2 @ 30%, PT TENDS TO BREATH FAST AFTER SUCTIONING , STRONG SPASMODIC COUGH, SUCTION MOUTH WITH YANKAUER, VERY PROD. NO VENT CHANGES MADE, CHANGE HME AND BUCIO, ALL VENT ALARMS GOOD. Clifton CARBAJALP Addendum: 04/09/22 at 2058 by STAR SHERIDAN RT Amended: Links added.
[2022-04-10] VITALS (26 sets, daily range): BP systolic 79–137; BP diastolic 44–81
[2022-04-10] MEDS: PROPOFOL 100 ML IV PRN ×8 (00:29→22:35)
--- NOTE | 2022-04-10 00:30 | NUR ---
turned and reposition patient . continue to monitor v/s patient with low grade temp 99.1 F. placed cold ice packs to bilateral groin and bilateral armpit .
--- NOTE | 2022-04-10 03:31 | NUR ---
inserted a new NGT the tube feeding pump keeps on beeping and its occluded ,tried flushing the ngt but its clog and unable to flushed will order xray to verify placement .
--- NOTE | 2022-04-10 04:30 | NUR ---
emergency vehicle operations instructor at b/s for patient am labs .
[2022-04-10] MEDS: PIPERACILLIN SODIUM/TAZOBACTAM 3.375 G in IV DEXTROSE 5% 100 ML IV SCH (05:06)
[2022-04-10 05:28] LABS: BILIRUBIN,TOTAL 0.8 mg/dL (0.2-1.0); CREATININE 0.8 mg/dL (0.6-1.3); HEMATOCRIT 42.3 % (36.7-47.1); MAGNESIUM 1.9 mg/dL (1.8-2.4); MEAN CORPUSCULAR HEMOGLOBIN 29.3 uug (23.8-33.4); MEAN CORPUSCULAR VOLUME 84.7 fL (73.0-96.2); PHOSPHOROUS 3.6 mg/dL (2.5-4.9); PLATELET COUNT (AUTO) 188 K/uL (152-348); POTASSIUM 3.7 mmol/L (3.5-5.1); TOTAL PROTEIN, SERUM 6.9 g/dL (6.4-8.2)
--- NOTE | 2022-04-10 05:34 | NUR ---
xray at b/s for patient chest xray and for verification of the new NGT tube .
[2022-04-10] MEDS: PANTOPRAZOLE ORAL SUSPENSION 40 MG SUSPDR.PKT NG SCH ×2 (08:36→21:04)
[2022-04-10] MEDS: HEPARIN SODIUM,PORCINE 5,000 UNITS/ML VIAL SQ SCH ×2 (08:37→21:05)
[2022-04-10] MEDS: REMEDY ESSENTIAL ZINC PASTE 113 GM TOP SCH ×2 (08:37→21:05)
[2022-04-10] MEDS ORDERED: LORAZEPAM 2 MG/1 ML VIAL IV PRN (08:45)
[2022-04-10] MEDS: POTASSIUM CHLORIDE 20 MEQ in IV NS 1000 ML 1,000 ML IV PRN ×2 (10:08→23:53)
[2022-04-10] MEDS ORDERED: IV NORMAL SALINE 500 ML IV ONE (10:30)
[2022-04-10] MEDS ORDERED: LORAZEPAM 1 MG TABLET GT PRN (12:45)
--- NOTE | 2022-04-10 20:00 | NUR ---
sr 62 to sr 58 on the heart monitor , tolerating vent settings with very strong cough and gag reflex,patient unable to open eyes doesn't not follow commands ,needs to be sedated gets restless and coughing hard on the ventilator .
--- NOTE | 2022-04-10 21:00 | NUR ---
due medication crushed and given via the ngt ,patient tolerating Jevity 1.2 at 65 ml/hr ,flushed ngt with water .
--- NOTE | 2022-04-10 21:22 | NUR ---
0PATIENT ON CONT BRUCE VENT WITH 7.5 ET/TUBE IN PLACE AND SECURED WITH ANCHOR FAST, MOVED Q2 HOURS, PT WITH RAPID SHALLOW BREATHING , ABD EFFORT ENGAGED IN BREATHING, SOMEWHAT POSTURING WHEN COUGHING, STRONG COUGH, VERY PROD, GARVEY, AND PALE YELL. TINGE SECRETIONS, AND SUCTION MOUTH WITH YANKAUER, NO VENT CHANGES MADE, PT IS SEDATED, VENT SETTINGS, A/C 14,VT 500ML, PEEP5, FIO2 @ 30%.Clifton SHERIDAN RCP Addendum: 04/10/22 at 2125 by STAR SHERIDAN RT Amended: Links added.
--- NOTE | 2022-04-10 22:43 | NUR ---
turned and reposition patient offloaded back with pillows ,heels off bed and scds used to ble .
[2022-04-11] VITALS (24 sets, daily range): BP systolic 82–119; BP diastolic 43–75
[2022-04-11] MEDS: PROPOFOL 100 ML IV PRN ×6 (01:44→23:03)
--- NOTE | 2022-04-11 03:30 | NUR ---
bath patient ,changed soiled linens and gown ,oral care done and hobson care dome . turned and reposition .
[2022-04-11 05:18] LABS: HEMATOCRIT 42.5 % (36.7-47.1); MEAN CORPUSCULAR HEMOGLOBIN 29.1 uug (23.8-33.4); MEAN CORPUSCULAR VOLUME 84.4 fL (73.0-96.2); PLATELET COUNT (AUTO) 209 K/uL (152-348)
[2022-04-11 05:26] LABS: CREATININE 0.9 mg/dL (0.6-1.3); MAGNESIUM 1.7 mg/dL (1.8-2.4); PHOSPHOROUS 3.8 mg/dL (2.5-4.9); POTASSIUM 3.8 mmol/L (3.5-5.1)
[2022-04-11] MEDS: PANTOPRAZOLE ORAL SUSPENSION 40 MG SUSPDR.PKT NG SCH ×2 (08:19→21:36)
[2022-04-11] MEDS: HEPARIN SODIUM,PORCINE 5,000 UNITS/ML VIAL SQ SCH ×2 (08:20→21:36)
[2022-04-11] MEDS: REMEDY ESSENTIAL ZINC PASTE 113 GM TOP SCH ×2 (08:21→21:36)
[2022-04-11] MEDS ORDERED: MAGNESIUM OXIDE 400 MG TABLET GT ONE (09:45)
--- NOTE | 2022-04-11 10:50 | NUR ---
Dr. Grande in the unit and wants weaning to be done RT at bedside sedation turned down Cpap initiated at this time
--- NOTE | 2022-04-11 11:50 | NUR ---
Patient diaphoretic, tachypnea, SOB, patient placed back on sedation and back on ventilator AC settings.
[2022-04-11] MEDS: QUETIAPINE FUMARATE 25 MG TABLET NG SCH ×2 (14:14→18:48)
[2022-04-11] MEDS: POTASSIUM CHLORIDE 20 MEQ in IV NS 1000 ML 1,000 ML IV PRN (14:32)
--- NOTE | 2022-04-11 18:08 | NUR ---
PT REC'D VENT TO ETT, TOLERATING FULL VENT SUPPORT WELL, WEANING PERFORMED DURING SHIFT PER DR BRENNAN, SEDATION DECREASED CPAP/PS TRIAL AFTER 40MINS PT BECAME TACHYPNIC AND DIAPHORETIC, PT PLACED TO FULL VENT SUPPORT, FREQUENT ORAL/ETT SXN'ING REQ'D THROUGHOUT SHIFT, MOD THICK YELLOWISH SECRETIONS NOTED. CONT WITH CURRENT RT ORDERS. BVM AT BEDSIDE.
--- NOTE | 2022-04-11 23:21 | NUR ---
PATIENT RECEIVED INTUBATED ON A MECHANICAL VENTILATOR WITH A SIZE 7.5 ET TUBE AT APPROX 23CM AT THE LIP. ET TUBE IS SECURED WITH ANCHOR FAST. PATIENT IS ON THE FOLLOWING SETTINGS THAT ARE CHARTED ON THE MECHANICAL VENTILATOR NOTES. SUCTIONED Q2. ALARMS CHECKED AND THEY ARE ON AND AUDIBLE. NO SOB NOTED AT THIS TIME. WILL CONTINUE TO MONITOR.
[2022-04-12] VITALS (22 sets, daily range): BP systolic 80–135; BP diastolic 43–77
[2022-04-12] MEDS: PROPOFOL 100 ML IV PRN ×6 (01:58→20:27)
[2022-04-12] MEDS: LORAZEPAM 1 MG TABLET NG PRN (04:08)
[2022-04-12 05:22] LABS: HEMATOCRIT 40.2 % (36.7-47.1); MEAN CORPUSCULAR HEMOGLOBIN 29.1 uug (23.8-33.4); PLATELET COUNT (AUTO) 252 K/uL (152-348)
[2022-04-12 05:28] LABS: CREATININE 0.9 mg/dL (0.6-1.3); MAGNESIUM 1.9 mg/dL (1.8-2.4); PHOSPHOROUS 4.1 mg/dL (2.5-4.9); POTASSIUM 3.6 mmol/L (3.5-5.1)
[2022-04-12] MEDS: POTASSIUM CHLORIDE 20 MEQ in IV NS 1000 ML 1,000 ML IV PRN ×2 (05:44→18:30)
[2022-04-12] MEDS: PANTOPRAZOLE ORAL SUSPENSION 40 MG SUSPDR.PKT NG SCH ×2 (08:25→20:08)
[2022-04-12] MEDS: REMEDY ESSENTIAL ZINC PASTE 113 GM TOP SCH ×2 (08:25→20:09)
[2022-04-12] MEDS: HEPARIN SODIUM,PORCINE 5,000 UNITS/ML VIAL SQ SCH ×2 (08:25→20:09)
[2022-04-12] MEDS: QUETIAPINE FUMARATE 25 MG TABLET NG SCH ×2 (08:25→16:14)
--- NOTE | 2022-04-12 09:20 | NUR ---
Received patient intubated and on propofol. Dr. Grande at bedside. Not a candidate to start weaning. Will continue to monitor.
--- NOTE | 2022-04-12 12:32 | NUR ---
Dr. Pate at bedside. Discussed plan of care and new orders. Will continue to monitor.
[2022-04-12] MEDS: JEVITY 1.2 1000 ML LIQUID NG PRN (12:48)
--- NOTE | 2022-04-12 20:00 | NUR ---
received patient in bed ,orally intubated vent setting ac 14/500/fio2 30% peep 5. tolerated vent saturation 95 to 96 % rr 20 to 21.suction via mouth with thick large secretions whitish in color ,ett very small ,strong cough ,gag reflex. tf in progress patient on Jevity at 65 ml/hr via the right NGT . Martines catheter yo bsd with greenish yellowish urine .
--- NOTE | 2022-04-12 21:30 | NUR ---
turned and reposition patient offloaded back with pillows heels off bed with pillow . scds used to bilateral legs.
[2022-04-13] VITALS (25 sets, daily range): BP systolic 82–134; BP diastolic 50–95
--- NOTE | 2022-04-13 | NUR ---
continue to monitor v/s and levels of sedation ,on and off patient with cough suction as needed .
[2022-04-13] MEDS: PROPOFOL 100 ML IV PRN ×7 (03:58→22:59)
[2022-04-13 05:03] LABS: HEMATOCRIT 42.7 % (36.7-47.1); MEAN CORPUSCULAR HEMOGLOBIN 29.2 uug (23.8-33.4); MEAN CORPUSCULAR VOLUME 83.2 fL (73.0-96.2); PLATELET COUNT (AUTO) 259 K/uL (152-348)
[2022-04-13 05:12] LABS: CREATININE 0.9 mg/dL (0.6-1.3); MAGNESIUM 1.7 mg/dL (1.8-2.4); PHOSPHOROUS 4.2 mg/dL (2.5-4.9); POTASSIUM 3.8 mmol/L (3.5-5.1)
--- NOTE | 2022-04-13 07:10 | NUR ---
OFF SEDATION (PROPOFOL DRIP)respiratory therapist at b/s patient is for [facility]BI ,LEAK TEST .
--- NOTE | 2022-04-13 07:15 | NUR ---
RSBI 72, (+) leak test..
[2022-04-13] MEDS: REMEDY ESSENTIAL ZINC PASTE 113 GM TOP SCH ×2 (08:29→20:02)
[2022-04-13] MEDS: PANTOPRAZOLE ORAL SUSPENSION 40 MG SUSPDR.PKT NG SCH ×2 (08:29→20:02)
[2022-04-13] MEDS: HEPARIN SODIUM,PORCINE 5,000 UNITS/ML VIAL SQ SCH ×2 (08:29→20:03)
[2022-04-13] MEDS: MAGNESIUM SULFATE/D5W 100 ML IV SCH ×2 (08:35→09:51)
[2022-04-13] MEDS: QUETIAPINE FUMARATE 25 MG TABLET NG SCH (08:36)
[2022-04-13] MEDS: JEVITY 1.2 1000 ML LIQUID NG PRN (08:41)
--- NOTE | 2022-04-13 09:19 | NUR ---
Pt.was seen by with new orders.
[2022-04-13] MEDS ORDERED: PIPERACILLIN SODIUM/TAZOBACTAM 3.375 G in IV DEXTROSE 5% 50 ML IV SCH (11:45)
[2022-04-13] MEDS: POTASSIUM CHLORIDE 20 MEQ in IV NS 1000 ML 1,000 ML IV PRN (12:00)
--- NOTE | 2022-04-13 12:45 | NUR ---
PT.WAS SEEN BY EDUARDO BRENNAN MD
--- NOTE | 2022-04-13 13:17 | NUR ---
PT.WAS SEEN BY CODY ALAS DNP
[2022-04-13] MEDS: PIPERACILLIN SODIUM/TAZOBACTAM 3.375 G in IV DEXTROSE 5% 100 ML IV SCH ×2 (14:50→22:14)
[2022-04-13] MEDS: QUETIAPINE FUMARATE 25 MG TABLET PO SCH (16:52)
[2022-04-13] MEDS: ACETAMINOPHEN 650 MG/20.3 ML LIQUID UDC GT PRN (20:02)
[2022-04-13] MEDS: IV NORMAL SALINE 250 ML IV PRN (20:03)
--- NOTE | 2022-04-13 21:33 | NUR ---
PATIENT ON CONT BRUCE VENT WITH 7.5 ET/TUBE IN PLACE AND SECURED WITH ANCHOR FAST, ROTATE Q2 HOURS, PT WITH STRONG COUGH , VERY PROD, SUCTIONED LIGHT PALE YELL TINGE SECRETIONS, AND SUCTION MOUTH WITH YANKAUER, VERY PRODUCTIVE, CHANGE HME , ALL VENT ALARMS GOOD, NO VENT CHANGES MADE, CURRENT VENT SETTINGS, A/C14, VT 500ML ,PEEP5 , FIO2 @ 30%, PT DOES ASSIST AT TIMES, PT IS ALSO SEDATED. Clifton SHERIDAN RCP Addendum: 04/13/22 at 2135 by STAR SHERIDAN RT Amended: Links added.
[2022-04-14] VITALS (50 sets, daily range): BP systolic 54–138; BP diastolic 43–94
[2022-04-14] MEDS: POTASSIUM CHLORIDE 20 MEQ in IV NS 1000 ML 1,000 ML IV PRN ×2 (02:45→18:25)
[2022-04-14 05:25] LABS: HEMATOCRIT 40.8 % (36.7-47.1); MEAN CORPUSCULAR HEMOGLOBIN 28.8 uug (23.8-33.4); MEAN CORPUSCULAR VOLUME 83.6 fL (73.0-96.2); PLATELET COUNT (AUTO) 289 K/uL (152-348)
[2022-04-14] MEDS: PIPERACILLIN SODIUM/TAZOBACTAM 3.375 G in IV DEXTROSE 5% 100 ML IV SCH ×3 (05:51→21:13)
[2022-04-14 05:57] LABS: CREATININE 0.8 mg/dL (0.6-1.3); MAGNESIUM 1.9 mg/dL (1.8-2.4); PHOSPHOROUS 4.9 mg/dL (2.5-4.9)
[2022-04-14] MEDS: PROPOFOL 100 ML IV PRN ×4 (06:21→21:57)
[2022-04-14] MEDS ORDERED: MIDODRINE HCL 2.5 MG TABLET PO SCH (07:30)
--- NOTE | 2022-04-14 08:00 | NUR ---
Pt received from outgoing RN at 1915 on 04/13/2022. Pt is sedated on propofol gtt at 45 mg/hr. Pt continues to have copious amount of balbuena colored secretions. Through out the night coordinator Pt's required frequent suctioning. Pt unable to tolerate being off sedation for more than 5 minutes at which time patient sweats profusely, appears to be uncomfortable and coughs extensively. Pt got a full bath on the night coordinator. At the end of the shift, pt blood pressure dropped to 80/40's. Report endorsed to Lexus Martinez RN to continue care of the patient.
[2022-04-14] MEDS: PANTOPRAZOLE ORAL SUSPENSION 40 MG SUSPDR.PKT NG SCH ×2 (08:19→21:12)
[2022-04-14] MEDS: QUETIAPINE FUMARATE 25 MG TABLET PO SCH ×2 (08:19→16:54)
[2022-04-14] MEDS: HEPARIN SODIUM,PORCINE 5,000 UNITS/ML VIAL SQ SCH ×2 (08:19→21:15)
[2022-04-14] MEDS: MIDODRINE HCL 5 MG TABLET PO SCH ×3 (08:19→21:13)
[2022-04-14] MEDS: REMEDY ESSENTIAL ZINC PASTE 113 GM TOP SCH ×2 (08:21→21:13)
[2022-04-14 11:13] LABS: ABG BASE EXCESS -1.8 mmol/L; ABG HCO3 21.6 mmol/L; ABG PCO2 33.1 mmHg (35.0-45.0); ABG PH 7.432 (7.350-7.450); ABG PO2 94.3 mmHg (75.0-100.0); ABG SITE RIGHT RADIAL; ABG TOTAL HEMOGLOBIN 15.7 G/dL (13.5-18.0); COHb 0.4 % (0.5-1.5); MetHb 0.1 % (0.0-1.5); VENT MODE VENT - A/C; VT, ABG 500 mL
[2022-04-14] MEDS: LORAZEPAM 1 MG TABLET NG PRN (12:55)
[2022-04-14 17:46] LABS: *BILIRUBIN,URIN NEGATIVE (NEGATIVE); *BLOOD, URINE 1+ (NEGATIVE); *CLARITY,URINE CLEAR (CLEAR); *COLOR,URINE YELLOW (YELLOW); *KETONES,URINE NEGATIVE (NEGATIVE); LEUKOCYTE ESTERASE ,URINE NEGATIVE (NEGATIVE); NITRITE, URINE NEGATIVE (NEGATIVE); PH,URINE 6.5 (5.0-8.0); UGLUCOSE NEGATIVE (NEGATIVE)
--- NOTE | 2022-04-14 19:08 | NUR ---
Patient was hemodynamically unstable and levophed was started and turned off at 1pm. Patient had episodes of bradycardia down to 40's. Dr. Farnsworth and Elder Pate notified. ABG and CXR done and patient too unstable for head CT. Will need follow up. Patient given ativan once, and patient was calm for remainder of evening. TOlerating tube feeding and bath. Cultures sent on sputum, urine and blood.
--- NOTE | 2022-04-14 20:00 | NUR ---
patient remains orally intubated and sedated on propofol ac 14/500/40%/ peep 5 secretions via ett ,small ,orally moderate thick to thin whitish to balbuena . propofol drip at 40 mcg/kg/min.n/s +20 kcl @ 70 ml/hr. off Levophed drip .
[2022-04-14 21:35] LABS: BACTERIA,URINE NONE SEEN /HPF (NONE SEEN); SQUAMOUS EPITHELIAL CELL,UR NONE SEEN /HPF (NONE SEEN); WBC,URINE 0-3 /HPF (0-3)
--- NOTE | 2022-04-14 22:00 | NUR ---
tolerating vent setting no respiratory distress noted . tolerating vent settings . turned and reposition patient offloaded back with pillows and heels off bed ,scds used to bilateral lower leg .oral care done ,suction via ett and via mouth .
[2022-04-15] VITALS (24 sets, daily range): BP systolic 90–146; BP diastolic 58–97
--- NOTE | 2022-04-15 00:09 | NUR ---
PATIENT ON CONT BRUCE VENT WITH 7.5 ET/TUBE IN PLACE AND SECURED WITH ANCHOR FAST , ROTATE Q2 HOURS; SUCTIONED LIGHT PALE YELL TINGE SECRETIONS AND SUCTION MOUTH WITH NELL, VERY PROD, CHANGE HME, ALL VENT ALARMS GOOD, NO VENT CHANGES MADE. Clifton CARBAJALP Addendum: 04/15/22 at 0012 by STAR SHERIDAN RT Amended: Links added.
--- NOTE | 2022-04-15 01:00 | NUR ---
sleeping in bed no distress ,tolerating vent .
[2022-04-15] MEDS: PROPOFOL 100 ML IV PRN ×4 (02:50→20:30)
[2022-04-15 04:54] LABS: HEMATOCRIT 40.2 % (36.7-47.1); MEAN CORPUSCULAR HEMOGLOBIN 29.2 uug (23.8-33.4); MEAN CORPUSCULAR VOLUME 83.8 fL (73.0-96.2); PLATELET COUNT (AUTO) 309 K/uL (152-348)
[2022-04-15] MEDS: MIDODRINE HCL 5 MG TABLET PO SCH ×3 (05:06→21:26)
[2022-04-15] MEDS: PIPERACILLIN SODIUM/TAZOBACTAM 3.375 G in IV DEXTROSE 5% 100 ML IV SCH ×3 (05:06→21:26)
[2022-04-15 05:07] LABS: CREATININE 0.8 mg/dL (0.6-1.3); MAGNESIUM 1.7 mg/dL (1.8-2.4); POTASSIUM 3.9 mmol/L (3.5-5.1)
[2022-04-15] MEDS: POTASSIUM CHLORIDE 20 MEQ in IV NS 1000 ML 1,000 ML IV PRN ×2 (07:10→20:25)
[2022-04-15] MEDS: MAGNESIUM SULFATE/D5W 100 ML IV SCH ×2 (07:46→08:47)
[2022-04-15] MEDS: HEPARIN SODIUM,PORCINE 5,000 UNITS/ML VIAL SQ SCH ×2 (07:51→20:15)
[2022-04-15] MEDS: QUETIAPINE FUMARATE 25 MG TABLET PO SCH ×2 (07:52→16:45)
[2022-04-15] MEDS: PANTOPRAZOLE ORAL SUSPENSION 40 MG SUSPDR.PKT NG SCH ×2 (07:53→20:13)
[2022-04-15] MEDS: REMEDY ESSENTIAL ZINC PASTE 113 GM TOP SCH ×2 (07:53→20:13)
[2022-04-15] MEDS: JEVITY 1.2 1000 ML LIQUID NG PRN (08:09)
[2022-04-15] MEDS ORDERED: HYDROCORTISONE SOD SUCCINATE 100 MG/2 ML VIAL IV ONE (08:15)
--- NOTE | 2022-04-15 08:30 | NUR ---
Pt.was seen by Dr Artis .
--- NOTE | 2022-04-15 10:40 | NUR ---
PT.WAS SEEN BY EDUARDO BRENNAN MD
--- NOTE | 2022-04-15 12:15 | NUR ---
Pt.went to CT scan,tolerated well,no s/s of distress.
--- NOTE | 2022-04-15 12:45 | NUR ---
Pt.was seen by VERNA Pate.
--- NOTE | 2022-04-15 19:00 | NUR ---
Received report. Patient is sedated, on Propofol drip @40mcg/kg/min, ET 7.5, LL 23, vent settings AC 14, TV 500, PEEP 5, FiO2 40%, O2 sat 98%. Suctioned and oral care every 2 hours. NSR on the monitor, HR 79, BP 141/82. NG TF Jevity 1.2 @65mls/hr, no gastric residual noted. IV R femoral TLC patent and flushed with ongoing NS + KCl 20mEq @ 70mls/hr. Martines catheter draining well to gravity. Turned and repositioned every 2 hours. Will continue to monitor closely.
--- NOTE | 2022-04-15 23:40 | NUR ---
SEDATION VACATION NOTES 2235 Turned off propofol. After 5mins, patient slowly opened his eyes. After 20 mins, patient started yawning, shrugged bilateral shoulders and closed his eyes. VSS. NAD. No labored breathing noted. After 30 mins, patient opened both eyes, tried to move his mouth and tongue. Patient is able to hear this bond writer's voice by nodding his head. VS HR 75, RR 15, BP 128/80 O2 sat 97%. NAD. No labored breathing noted. After 45 mins, patient yawned again, able to feel BUE by nodding his head and able to track with both eyes. After 55 mins, patient yawned again and is able to feel BLE by nodding his head. After 1 hour, patient is still awake and calm. VSS. NAD. No labored breathing noted. Turn on Propofol @ 30mcg/kg/min. Will continue to monitor closely.
[2022-04-16] VITALS (22 sets, daily range): BP systolic 110–144; BP diastolic 64–90
[2022-04-16] MEDS: JEVITY 1.2 1000 ML LIQUID NG PRN (03:08)
--- NOTE | 2022-04-16 03:15 | NUR ---
AM care done and linen changed. Patient had 1 large soft brown BM.
--- NOTE | 2022-04-16 03:42 | NUR ---
FiO2 decreased to 30%, tolerating well, O2 sat 96%. Will continue to monitor closely.
[2022-04-16] MEDS: PROPOFOL 100 ML IV PRN ×4 (04:36→22:53)
[2022-04-16 05:05] LABS: HEMATOCRIT 41.4 % (36.7-47.1); MEAN CORPUSCULAR HEMOGLOBIN 28.9 uug (23.8-33.4); MEAN CORPUSCULAR VOLUME 83.2 fL (73.0-96.2); PLATELET COUNT (AUTO) 320 K/uL (152-348)
[2022-04-16] MEDS: MIDODRINE HCL 5 MG TABLET PO SCH ×3 (05:11→22:00)
[2022-04-16] MEDS: PIPERACILLIN SODIUM/TAZOBACTAM 3.375 G in IV DEXTROSE 5% 100 ML IV SCH ×3 (05:12→22:28)
[2022-04-16 05:49] LABS: CREATININE 0.8 mg/dL (0.6-1.3); MAGNESIUM 1.9 mg/dL (1.8-2.4); PHOSPHOROUS 3.9 mg/dL (2.5-4.9); POTASSIUM 3.6 mmol/L (3.5-5.1)
--- NOTE | 2022-04-16 07:26 | NUR ---
Transported patient from CCU 3 to ER 1B via hospital bed, attached to transport senior windows systems administrator, accompanied by 3 staff members, without any incident. VSS. TEJADA.
[2022-04-16] MEDS ORDERED: HEPARIN SODIUM,PORCINE 5,000 UNITS/ML VIAL ONE ×2 (09:18→19:49)
[2022-04-16] MEDS ORDERED: QUETIAPINE FUMARATE 25 MG TABLET ONE ×2 (09:18→16:21)
[2022-04-16] MEDS: POTASSIUM CHLORIDE 20 MEQ in IV NS 1000 ML 1,000 ML IV PRN ×2 (09:28→23:07)
[2022-04-16] MEDS: QUETIAPINE FUMARATE 25 MG TABLET PO SCH ×2 (09:38→16:28)
[2022-04-16] MEDS: HEPARIN SODIUM,PORCINE 5,000 UNITS/ML VIAL SQ SCH ×2 (09:39→20:47)
[2022-04-16] MEDS: REMEDY ESSENTIAL ZINC PASTE 113 GM TOP SCH ×2 (10:10→20:49)
[2022-04-16] MEDS: PANTOPRAZOLE ORAL SUSPENSION 40 MG SUSPDR.PKT NG SCH ×2 (10:20→20:45)
[2022-04-16] MEDS ORDERED: PROPOFOL 100 ML ONE ×3 (11:54→22:47)
[2022-04-16] MEDS ORDERED: MIDODRINE HCL 5 MG TABLET ONE (14:36)
--- NOTE | 2022-04-16 16:01 | NUR ---
0736am: 1st contact with patient: patient came from 2nd floor-CCU to ER department secondary to CCU staffing issues. ER nursing staff will take care of this patient for the meantime. Patient is sedated, orally intubated connected to ventilator, current ventilator parameter: AC, rate=14/min, tidal gdhrow=148, FiO2=30%, PEEP=5. Patient is afebrile, skin warm & moist, with rigid extremities x4 that move when stimulated, occasional coughing heard. 1240pm: Supervising Editor News [email or web address]. 1604pm: ERIC Angel is here in ER.
[2022-04-17] VITALS (23 sets, daily range): BP systolic 86–149; BP diastolic 43–84
[2022-04-17] MEDS ORDERED: PROPOFOL 100 ML ONE ×3 (04:00→13:23)
[2022-04-17] MEDS: PROPOFOL 100 ML IV PRN ×4 (04:01→19:33)
[2022-04-17] MEDS: PIPERACILLIN SODIUM/TAZOBACTAM 3.375 G in IV DEXTROSE 5% 100 ML IV SCH (05:13)
[2022-04-17 05:25] LABS: HEMATOCRIT 42.1 % (36.7-47.1); MEAN CORPUSCULAR HEMOGLOBIN 28.8 uug (23.8-33.4); MEAN CORPUSCULAR VOLUME 84.2 fL (73.0-96.2); PLATELET COUNT (AUTO) 333 K/uL (152-348)
[2022-04-17 05:31] LABS: CREATININE 0.8 mg/dL (0.6-1.3); MAGNESIUM 1.8 mg/dL (1.8-2.4); PHOSPHOROUS 3.8 mg/dL (2.5-4.9); POTASSIUM 3.7 mmol/L (3.5-5.1)
[2022-04-17] MEDS ORDERED: MIDODRINE HCL 5 MG TABLET ONE ×2 (05:39→14:19)
[2022-04-17] MEDS: MIDODRINE HCL 5 MG TABLET PO SCH ×3 (05:40→21:08)
[2022-04-17] MEDS ORDERED: HEPARIN SODIUM,PORCINE 5,000 UNITS/ML VIAL ONE (08:47)
[2022-04-17] MEDS ORDERED: QUETIAPINE FUMARATE 25 MG TABLET ONE ×2 (08:48→16:58)
[2022-04-17] MEDS: HEPARIN SODIUM,PORCINE 5,000 UNITS/ML VIAL SQ SCH ×2 (08:57→21:03)
[2022-04-17] MEDS: QUETIAPINE FUMARATE 25 MG TABLET PO SCH ×2 (08:57→17:23)
[2022-04-17] MEDS: REMEDY ESSENTIAL ZINC PASTE 113 GM TOP SCH ×2 (08:58→21:06)
[2022-04-17] MEDS: PANTOPRAZOLE ORAL SUSPENSION 40 MG SUSPDR.PKT NG SCH ×2 (09:00→21:02)
[2022-04-17] MEDS: JEVITY 1.2 1000 ML LIQUID NG PRN (09:05)
[2022-04-17] MEDS ORDERED: CEFTRIAXONE /D5W 50ML IVPB **ER PYXIS IV ONE (12:08)
[2022-04-17] MEDS: CEFTRIAXONE 1 G in IV DEXTROSE 5% 50 ML IV SCH (12:10)
[2022-04-17] MEDS: POTASSIUM CHLORIDE 20 MEQ in IV NS 1000 ML 1,000 ML IV PRN (12:56)
--- NOTE | 2022-04-17 14:32 | NUR ---
RECEIVED PT STABLE ON CURRENT VENT SETTINGS SATURATING 97 TO 99%. ORAL CARE GIVEN AND MOVED ET TUBE TO MID RIGHT. SSUTIONED NEEDED FOR MODERATE AMOUNT OF THICK PALE YELLOW SECRETIONS. NO CHANGES MADE WITH SETTINGS TODAY.
--- NOTE | 2022-04-17 18:00 | NUR ---
pt transfered to ICU floor with RT, House Sup, and RN.
[2022-04-18] VITALS (23 sets, daily range): BP systolic 84–149; BP diastolic 45–80
[2022-04-18] MEDS: PROPOFOL 100 ML IV PRN ×2 (01:02→06:33)
[2022-04-18] MEDS ORDERED: POTASSIUM CHLORIDE 100 ML ONE (02:02)
[2022-04-18] MEDS: POTASSIUM CHLORIDE 20 MEQ in IV NS 1000 ML 1,000 ML IV PRN ×2 (02:13→17:26)
[2022-04-18 05:07] LABS: MEAN CORPUSCULAR HEMOGLOBIN 29.1 uug (23.8-33.4); MEAN CORPUSCULAR VOLUME 84.1 fL (73.0-96.2); PLATELET COUNT (AUTO) 326 K/uL (152-348)
[2022-04-18 05:15] LABS: CREATININE 0.8 mg/dL (0.6-1.3); MAGNESIUM 1.8 mg/dL (1.8-2.4); PHOSPHOROUS 4.3 mg/dL (2.5-4.9); POTASSIUM 3.7 mmol/L (3.5-5.1)
[2022-04-18] MEDS: MIDODRINE HCL 5 MG TABLET PO SCH ×3 (05:20→20:27)
--- NOTE | 2022-04-18 07:05 | NUR ---
Patient received on cont oswald given settings of AC 14, Vt 500, PEEP +5, 30% Fio2. Oral care done, with prn sxn. No changes made at this time. Alarms on and audible, will continue to monitor.
--- NOTE | 2022-04-18 07:10 | NUR ---
PT.WAS SEEN BY EDUARDO BRENNAN MD
[2022-04-18] MEDS: PANTOPRAZOLE ORAL SUSPENSION 40 MG SUSPDR.PKT NG SCH ×2 (08:54→20:27)
[2022-04-18] MEDS: QUETIAPINE FUMARATE 25 MG TABLET PO SCH ×2 (08:54→17:03)
[2022-04-18] MEDS: JEVITY 1.2 1000 ML LIQUID NG PRN (08:54)
[2022-04-18] MEDS: REMEDY ESSENTIAL ZINC PASTE 113 GM TOP SCH ×2 (08:55→20:28)
[2022-04-18] MEDS: HEPARIN SODIUM,PORCINE 5,000 UNITS/ML VIAL SQ SCH ×2 (08:55→20:28)
--- NOTE | 2022-04-18 09:55 | NUR ---
pt.off Propofol from 7am.neurologically-pt. open eyes only, no tracking, no purposeful movement noted.large amount thick secretion,required freq.suction.
[2022-04-18] MEDS: CEFTRIAXONE 1 G in IV DEXTROSE 5% 50 ML IV SCH (11:31)
--- NOTE | 2022-04-18 12:09 | NUR ---
Pt.was seen by Dr Artis .
--- NOTE | 2022-04-18 16:30 | NUR ---
PT.WAS SEEN BY DNP:MARK ALAS.WAS UPDATED WITH PT.CONDITION AND PLAN OF CARE.
[2022-04-19] VITALS (22 sets, daily range): BP systolic 86–151; BP diastolic 55–117
[2022-04-19] MEDS: MIDODRINE HCL 5 MG TABLET PO SCH ×3 (05:36→22:00)
[2022-04-19 05:52] LABS: HEMATOCRIT 40.7 % (36.7-47.1); MEAN CORPUSCULAR HEMOGLOBIN 29.3 uug (23.8-33.4); MEAN CORPUSCULAR VOLUME 83.6 fL (73.0-96.2); PLATELET COUNT (AUTO) 320 K/uL (152-348)
--- NOTE | 2022-04-19 05:54 | NUR ---
Pt received last night at 2200 from outgoing RN. Pt in bed, was asleep most of the night but up at 0400 during bath and blood draw. Pt became agitated because he wanted to remove the bipap mask. Ativan 0.5 mg administered. Patient received a full bed bath with linen change. Report endorsed to be endorsed to day shift RN. Addendum: 04/19/22 at 0600 by DONNA LORENZO RN Note entered on the wrong patient. A new note will be entered on this patient.
--- NOTE | 2022-04-19 06:00 | NUR ---
report received on this patient at 2230. Pt remains in bed with propofol since 0700. Pt lies in bed with his eyes open and tracks movement, however there is no meaningfull response to commands. Pt is not ready for weaning. Patient received full bath. Addendum: 04/19/22 at 0731 by DONNA LORENZO RN Soon after writing this note, RN walked into patients room and had a meaningfull interaction with the patient. Pt. was asked, if he was cold, he made Eye contact and nodded yes and mouthed the words appropriately. When asked if he wanted a blanket, pt also responded appropriately.
[2022-04-19 06:02] LABS: CREATININE 0.7 mg/dL (0.6-1.3); MAGNESIUM 1.9 mg/dL (1.8-2.4); POTASSIUM 3.6 mmol/L (3.5-5.1)
--- NOTE | 2022-04-19 06:06 | NUR ---
Triple Lumen Catheter Patient has had a triple lumen catheter in the right femoral area. Dressing changed by day shift RN. However, that site needs to be rotatedl/
[2022-04-19] MEDS ORDERED: POTASSIUM CHLORIDE 20 MEQ POWDER PACKET GT ONE (07:30)
--- NOTE | 2022-04-19 07:48 | NUR ---
RECEIVED PT ON ORDERED VENT SETTTINGS. ORAL CARE DONE. SX AND CHANGED HME. PT AWAKE AND NODDED YES TO ORAL CARE.
--- NOTE | 2022-04-19 07:49 | NUR ---
Dr. Farnsworth at bedside assessing patient.
[2022-04-19] MEDS: POTASSIUM CHLORIDE 20 MEQ in IV NS 1000 ML 1,000 ML IV PRN ×2 (08:06→23:05)
[2022-04-19] MEDS: QUETIAPINE FUMARATE 25 MG TABLET PO SCH ×2 (08:20→18:06)
[2022-04-19] MEDS: PANTOPRAZOLE ORAL SUSPENSION 40 MG SUSPDR.PKT NG SCH ×2 (08:20→20:29)
[2022-04-19] MEDS: HEPARIN SODIUM,PORCINE 5,000 UNITS/ML VIAL SQ SCH ×2 (08:21→20:31)
[2022-04-19] MEDS: REMEDY ESSENTIAL ZINC PASTE 113 GM TOP SCH ×2 (08:22→20:25)
[2022-04-19] MEDS: JEVITY 1.2 1000 ML LIQUID NG PRN (09:38)
[2022-04-19] MEDS: CEFTRIAXONE 1 G in IV DEXTROSE 5% 50 ML IV SCH (11:17)
--- NOTE | 2022-04-19 19:00 | NUR ---
Received report. Patient is awake, responsive to name, able to nod his head. NSR on the monitor, 65. Intubated with vent settings of AC 14, TV 500, PEEP 5, FiO2 30%, O2 sat 99%. NG TF Jevity 1.2 @65mls/hr, no gastric residual noted. R femoral PICC line patent and flushed with ongoing NS + 20 mEq KCl @70mls/hr. Martines catheter draining well to gravity. Will continue to monitor closely.
--- NOTE | 2022-04-19 23:51 | NUR ---
PATIENT ON CONT BRUCE VENT WITH 7.5 ET/TUBE IN PLACE AND SECURED WITH ANCHOR FAST , MOVE Q2 HOURS, PT NOT SEDATED, EYES SLIGHTLY OPENED ONCE IN AWHILE, SUCTIONED LIGHT PALE YELL TINGE SECRETIONS, AND SUCTION MOUTH WITH ULYSSES CAMEJO WELL, NO VENT CHANGES , CHANGE HME, ALL VENT ALARMS GOOD; TRIAL ON CPAP @ 06:00 TOLERATED . Clifton SHERIDAN RCP Addendum: 04/19/22 at 1525 by STAR SHERIDAN RT Amended: Links added.
[2022-04-20] VITALS (23 sets, daily range): BP systolic 80–161; BP diastolic 48–107
--- NOTE | 2022-04-20 01:50 | NUR ---
Patient appears agitated, labored breathing noted. Oropharyngeal and ETT suctioned done. Ativan 1 mg as ordered given. Will continue to monitor closely.
[2022-04-20] MEDS: LORAZEPAM 1 MG TABLET NG PRN ×2 (01:58→19:39)
[2022-04-20] MEDS: ACETAMINOPHEN 650 MG/20.3 ML LIQUID UDC GT PRN ×2 (02:51→19:39)
--- NOTE | 2022-04-20 04:00 | NUR ---
AM care done. Linen changed.
[2022-04-20 05:19] LABS: HEMATOCRIT 41.7 % (36.7-47.1); MEAN CORPUSCULAR HEMOGLOBIN 29.2 uug (23.8-33.4); MEAN CORPUSCULAR VOLUME 83.5 fL (73.0-96.2); PLATELET COUNT (AUTO) 319 K/uL (152-348)
[2022-04-20] MEDS: MIDODRINE HCL 5 MG TABLET PO SCH ×3 (05:30→21:07)
[2022-04-20 05:36] LABS: CREATININE 0.7 mg/dL (0.6-1.3); POTASSIUM 3.9 mmol/L (3.5-5.1)
[2022-04-20 05:42] LABS: BILIRUBIN,DIRECT 0.2 mg/dL (0.0-0.2); BILIRUBIN,TOTAL 0.6 mg/dL (0.2-1.0); TOTAL PROTEIN, SERUM 7.4 g/dL (6.4-8.2)
--- NOTE | 2022-04-20 06:00 | NUR ---
RT Santiago at bedside and started on CPAP mode, tolerating well. No labored breathing noted. Will continue to monitor closely.
--- NOTE | 2022-04-20 06:00 | NUR ---
TF Jevity 1.2 off [id number].
[2022-04-20 07:42] LABS: ABG BASE EXCESS -0.1 mmol/L; ABG HCO3 23.8 mmol/L; ABG PCO2 36.8 mmHg (35.0-45.0); ABG PH 7.429 (7.350-7.450); ABG PO2 100.5 mmHg (75.0-100.0); ABG SITE RIGHT RADIAL; ABG TOTAL HEMOGLOBIN 14.9 G/dL (13.5-18.0); COHb 0.4 % (0.5-1.5); MetHb 0.1 % (0.0-1.5); O2Hb 97.2 % (94.0-97.0); VENT MODE VENT - CPAP - PS 8
[2022-04-20] MEDS ORDERED: DC PROPOFOL ONCE EXTUBATED XX PRN (08:00)
--- NOTE | 2022-04-20 08:30 | NUR ---
Patient extubated. Placed on nasal cannula at 5L, saturating 98%. Patient does not appear to be in distress at the moment. Will continue to monitor closely.
[2022-04-20] MEDS: PANTOPRAZOLE ORAL SUSPENSION 40 MG SUSPDR.PKT NG SCH ×2 (09:05→20:58)
[2022-04-20] MEDS: JEVITY 1.2 1000 ML LIQUID NG PRN (09:07)
[2022-04-20] MEDS: HEPARIN SODIUM,PORCINE 5,000 UNITS/ML VIAL SQ SCH ×2 (09:07→21:08)
[2022-04-20] MEDS: QUETIAPINE FUMARATE 25 MG TABLET PO SCH ×2 (09:08→17:48)
--- NOTE | 2022-04-20 09:26 | NUR ---
Patient is able to follow verbal commands. Asked patient to move upper extremities; Patient was unable to move upper extremities but states "I'm trying." Patient unable to wiggle toes when commanded.
[2022-04-20] MEDS: REMEDY ESSENTIAL ZINC PASTE 113 GM TOP SCH ×2 (11:50→20:56)
[2022-04-20] MEDS: POTASSIUM CHLORIDE 20 MEQ in IV NS 1000 ML 1,000 ML IV PRN (13:27)
[2022-04-20] MEDS ORDERED: MIRALAX 17 GM POWD.PACK PO PRN (17:30)
[2022-04-20 18:19] LABS: ABG BASE EXCESS -0.9 mmol/L; ABG HCO3 22.8 mmol/L; ABG PCO2 35.2 mmHg (35.0-45.0); ABG PH 7.429 (7.350-7.450); ABG PO2 99.6 mmHg (75.0-100.0); ABG SITE RIGHT RADIAL; ABG TOTAL HEMOGLOBIN 16.5 G/dL (13.5-18.0); COHb 0.4 % (0.5-1.5); MetHb 0.2 % (0.0-1.5); O2Hb 97.1 % (94.0-97.0); VENT MODE Nasal Cannula
--- NOTE | 2022-04-20 18:22 | NUR ---
Patient is diaphoretic with audible wheezing. Oxygen saturation in the 90s. Blood pressure 125/73, heart rate 121. Patient's rectal temperature is 99.0. Patient nods yes when asked if he is short of breath. Notified Dr. Turner of situation and ABG results. Orders received and carried out.
[2022-04-20] MEDS ORDERED: ALBUTEROL SULFATE 1.25 MG/3 ML NEBU NEB PRN (18:30)
[2022-04-20] MEDS ORDERED: MORPHINE SULFATE 2 MG/1 ML DISP.SYRIN IV PRN (18:30)
--- NOTE | 2022-04-20 19:00 | NUR ---
Received report. Patient is awake, alert, able to talk. S/P extubation. ST on the monitor, HR 126. NG TF Jevity 1.2 @60mls/hr, no gastric residual noted. R femoral PICC TLC patent and flushed, with ongoing NS + 20mEq KCl @70mls/hr. Martines catheter draining well to gravity. Will continue to monitor closely.
--- NOTE | 2022-04-20 19:04 | NUR ---
PRN treatment given without any adverse drug reaction. No SOB noted. nurse aware
--- NOTE | 2022-04-20 19:30 | NUR ---
Patient is restless, HR 124, RR 48. Ativan 1mg PRN given as ordered. Will continue to monitor closely.
[2022-04-20] MEDS: DOCUSATE SODIUM 100 MG CAPSULE PO SCH (20:58)
[2022-04-21] VITALS (15 sets, daily range): BP systolic 91–144; BP diastolic 55–100
[2022-04-21] MEDS: POTASSIUM CHLORIDE 20 MEQ in IV NS 1000 ML 1,000 ML IV PRN (03:28)
[2022-04-21 05:18] LABS: HEMATOCRIT 44.3 % (36.7-47.1); MEAN CORPUSCULAR VOLUME 84.2 fL (73.0-96.2); PLATELET COUNT (AUTO) 335 K/uL (152-348)
[2022-04-21 05:27] LABS: CREATININE 0.7 mg/dL (0.6-1.3); MAGNESIUM 2.2 mg/dL (1.8-2.4); POTASSIUM 4.2 mmol/L (3.5-5.1)
[2022-04-21 06:06] LABS: ABG BASE EXCESS -3.3 mmol/L; ABG HCO3 20.2 mmol/L; ABG PCO2 32.5 mmHg (35.0-45.0); ABG PH 7.412 (7.350-7.450); ABG SITE LEFT RADIAL; ABG TOTAL HEMOGLOBIN 15.8 G/dL (13.5-18.0); COHb 0.5 % (0.5-1.5); MetHb 0.1 % (0.0-1.5); O2Hb 98.4 % (94.0-97.0); VENT MODE Nasal Cannula
[2022-04-21] MEDS: MIDODRINE HCL 5 MG TABLET PO SCH ×3 (06:31→21:08)
[2022-04-21] MEDS: REMEDY ESSENTIAL ZINC PASTE 113 GM TOP SCH ×2 (09:31→20:52)
[2022-04-21] MEDS: PANTOPRAZOLE ORAL SUSPENSION 40 MG SUSPDR.PKT NG SCH ×2 (09:31→20:53)
[2022-04-21] MEDS: QUETIAPINE FUMARATE 25 MG TABLET PO SCH ×2 (09:31→17:11)
[2022-04-21] MEDS: HEPARIN SODIUM,PORCINE 5,000 UNITS/ML VIAL SQ SCH ×2 (09:32→20:51)
[2022-04-21] MEDS: JEVITY 1.2 1000 ML LIQUID NG PRN (09:44)
--- NOTE | 2022-04-21 16:00 | NUR ---
Gave report to ARLETH Meyer.
--- NOTE | 2022-04-21 20:40 | NUR ---
RECEIVED PATIENT IN BED. AROUSED BY NAME. ORIENTED TO NAME ONLY. REORIENTED PATIENT ACCORDINGLY. ON TELEMONITOR SHOWING SINUS RHYTHM WITH HR OF 79BPM. ON 4L O2 SATURATING AT 96%. WITH RIGHT FEMORAL CENTRAL LINE, PATENT AND INTACT. WITH NASOGASTRIC TUBE, GASTRIC RESIDUAL OF 10CC. WITH ESPARZA CATHETER DRAINING CLEAR YELLOW URINE. PATIENT NOTED TO BE DIAPHORETIC. COLD TOWEL BATH GIVEN. SAFETY PRECAUTIONS MAINTAINED. CLOSELY MONITORED.
[2022-04-21] MEDS: DOCUSATE SODIUM 100 MG CAPSULE PO SCH (20:51)
[2022-04-22 00:29] VITALS: BP 123/68
[2022-04-22 05:11] VITALS: BP 131/85
[2022-04-22] MEDS: MIDODRINE HCL 5 MG TABLET PO SCH ×3 (06:00→22:15)
[2022-04-22] MEDS: JEVITY 1.2 1000 ML LIQUID NG PRN (06:23)
--- NOTE | 2022-04-22 06:55 | NUR ---
PATIENT SLEPT THROUGH THE NIGHT, NOTED TO HAVE DIAPHORETIC EPISODES AND TACHYCARDIA AT NIGHT. NOW SINUS RHYTHM ON TELEMONITOR WITH HR OF 77BPM. ON 4L O2 SATURATING AT 96%. NASOGASTRIC TUBE INTACT. ESPARZA BAG NOTED TO BE EMPTY, BLADDER SCAN DONE, NOTED 810ML OF URINE. ESPARZA CATHETER NOTED TO BE CLOGGED, FLUSHED CATHETER, HOWEVER UNABLE TO UNCLOG SUCCESSFULLY, REMOVED ESPARZA CATHETER, REINSERTED NEW ESPARZA CATHETER USING ASEPTIC TECHNIQUE. 900ML OF URINE DRAINED. CENTRAL LINE DRESSING NOTED TO BE SOILED, CHANGED DRESSING. ALL NEEDS ATTENDED TO AND MET. SAFETY PRECAUTIONS MAINTAINED. ENDORSED TO DAY SHIFT.
[2022-04-22] MEDS: REMEDY ESSENTIAL ZINC PASTE 113 GM TOP SCH ×2 (09:00→22:04)
[2022-04-22] MEDS: PANTOPRAZOLE ORAL SUSPENSION 40 MG SUSPDR.PKT NG SCH (10:05)
[2022-04-22] MEDS: HEPARIN SODIUM,PORCINE 5,000 UNITS/ML VIAL SQ SCH ×2 (10:09→21:43)
[2022-04-22] MEDS: QUETIAPINE FUMARATE 25 MG TABLET PO SCH ×2 (10:10→17:54)
[2022-04-22 12:20] VITALS: BP 104/64
[2022-04-22 17:22] VITALS: BP 110/70
--- NOTE | 2022-04-22 19:30 | NUR ---
Received patient in bed, awake answer yes and no question only, no s/s of pain or sob, tele monitor sinus rhythm at this time, NGT in place and patent. Ngt tolerate well, no nausea no vomiting, no diarrhea noted, no residual noted, r femoral iv access dressing intact, turn and reposition, cont to monitor.
[2022-04-22 20:40] VITALS: BP 106/51
--- NOTE | 2022-04-22 21:20 | NUR ---
Received patient in bed, alert but forgetful, no sob no chest pain, tele monitor a fib. Patient complain of gen body pain, unable to sleep, patient give Tylenol 650mg plus ambien for sleep, restless, multiple episode of trying to climb out of bed, patient incontinent of bladder, kept clean and dry. frequent visual check, risk for fall, cont to monitor. Addendum: 04/23/22 at 0511 by JOI ORANTES RN Received patient in bed, alert but forgetful, no sob no chest pain, tele monitor a fib. Patient complain of gen body pain, unable to sleep, patient give Tylenol 650mg plus ambien for sleep, restless, multiple episode of trying to climb out of bed, patient incontinent of bladder, kept clean and dry. frequent visual check, risk for fall, cont to monitor. charting in error
[2022-04-22] MEDS: DOCUSATE SODIUM 100 MG CAPSULE PO SCH (21:41)
[2022-04-23 00:22] VITALS: BP 114/72
--- NOTE | 2022-04-23 01:00 | NUR ---
Patient assisted to bedside commode for bowel elimination, but no BM yet, pass gas at this time, complain of constipation, given MOM 30ml, complain of being hungry given sandwich plus a juice, with episode of needy behavior, yelling wanting more attention, resistive with care, refused to medication, needs lots of encouragement before taking his medications, given seroquel 25mg po as ordered, prn with no adverse reaction noted, cont to slim. Addendum: 04/23/22 at 0509 by JOI ORANTES RN Patient assisted to bedside commode for bowel elimination, but no BM yet, pass gas at this time, complain of constipation, given MOM 30ml, complain of being hungry given sandwich plus a juice, with episode of needy behavior, yelling wanting more attention, resistive with care, refused to medication, needs lots of encouragement before taking his medications, given seroquel 25mg po as ordered, prn with no adverse reaction noted, cont to monitor, charting in error.
[2022-04-23 04:24] VITALS: BP 99/57
[2022-04-23] MEDS: MIDODRINE HCL 5 MG TABLET PO SCH ×3 (05:50→21:12)
[2022-04-23 06:00] LABS: HEMATOCRIT 44.6 % (36.7-47.1); MEAN CORPUSCULAR HEMOGLOBIN 28.9 uug (23.8-33.4); MEAN CORPUSCULAR VOLUME 84.1 fL (73.0-96.2); PLATELET COUNT (AUTO) 325 K/uL (152-348)
[2022-04-23 06:17] LABS: CREATININE 0.9 mg/dL (0.6-1.3); MAGNESIUM 2.1 mg/dL (1.8-2.4); PHOSPHOROUS 4.5 mg/dL (2.5-4.9); POTASSIUM 3.8 mmol/L (3.5-5.1)
--- NOTE | 2022-04-23 07:00 | NUR ---
Patient slept most the night no s/s of pain or discomfort, tolerate ngt, no residual noted, patient still drowsy, but arousable, cont to monitor.
[2022-04-23] MEDS: QUETIAPINE FUMARATE 25 MG TABLET PO SCH ×2 (08:52→16:23)
[2022-04-23] MEDS: PANTOPRAZOLE ORAL SUSPENSION 40 MG SUSPDR.PKT NG SCH (08:52)
[2022-04-23] MEDS: HEPARIN SODIUM,PORCINE 5,000 UNITS/ML VIAL SQ SCH ×2 (08:53→20:49)
[2022-04-23] MEDS: REMEDY ESSENTIAL ZINC PASTE 113 GM TOP SCH ×2 (08:53→20:50)
--- NOTE | 2022-04-23 09:23 | NUR ---
Patient tolerating soft diet. Patient able to finish meal with no signs of aspiration.
[2022-04-23] MEDS ORDERED: IV NORMAL SALINE 500 ML IV ONE (11:00)
[2022-04-23] MEDS: MULTIVITAMINS,THERAPEUTIC TABLET PO SCH (11:14)
[2022-04-23] MEDS: ACIDOPHILUS/BULGARICUS CHEW TAB PO SCH ×2 (11:14→22:33)
[2022-04-23 11:30] VITALS: BP 115/66
--- NOTE | 2022-04-23 11:48 | NUR ---
NG tube removed. Patient tolerating soft diet well. Patient to be discharged at 1600 to [facility].
[2022-04-23] MEDS ORDERED: MULT-24 PO (15:31)
[2022-04-23] MEDS ORDERED: HEPA50007 SQ (15:31)
[2022-04-23] MEDS ORDERED: ALBU1.25 NEB (15:31)
[2022-04-23] MEDS ORDERED: FAMO-132 PO (15:31)
[2022-04-23] MEDS ORDERED: DOCU-141 PO (15:31)
[2022-04-23] MEDS ORDERED: QUET25TA36 PO (15:31)
[2022-04-23] MEDS ORDERED: POLY17PO4 PO (15:31)
[2022-04-23] MEDS ORDERED: ACET-2154 PO (15:31)
[2022-04-23 17:10] VITALS: BP 105/65
--- NOTE | 2022-04-23 18:16 | NUR ---
Patient tolerated care well throughout shift with no signs of distress or pain. Vital signs within normal limits. Patient originally planned to become discharged today, but due to short staff of facility for placement, patient will be discharged tomorrow morning at 1000. Facility requesting to remove IV site, and hobson catheter. 500cc of normal saline wide open administered to patient during shift. IV site patent and intact. NG tube removed during shift. Patient tolerating soft diet well completing 100% of meal tray. IV site patent and intact. Bed left in lowest position. Will endorse information to PM nurse.
[2022-04-23 20:19] VITALS: BP 106/63
[2022-04-23] MEDS: DOCUSATE SODIUM 100 MG CAPSULE PO SCH (20:48)
[2022-04-24 00:28] VITALS: BP 124/81
[2022-04-24 04:49] VITALS: BP 102/57
[2022-04-24 05:44] VITALS: BP 102/57
[2022-04-24] MEDS: MIDODRINE HCL 5 MG TABLET PO SCH (05:44)
--- NOTE | 2022-04-24 08:00 | NUR ---
Received patient is bed awake and alert 2-3. pt is on 4L of oxygen. Pt has a right groin central line. Pt transportation associate is decorticate and affect is obtunded. When patient responds to question he is delayed in his response. Safety measures are in place. Will continue to monitor.
[2022-04-24] MEDS: PANTOPRAZOLE ORAL SUSPENSION 40 MG SUSPDR.PKT NG SCH (09:00)
[2022-04-24] MEDS: MULTIVITAMINS,THERAPEUTIC TABLET PO SCH (09:11)
[2022-04-24] MEDS: ACIDOPHILUS/BULGARICUS CHEW TAB PO SCH (09:11)
[2022-04-24] MEDS: QUETIAPINE FUMARATE 25 MG TABLET PO SCH (09:11)
[2022-04-24] MEDS: REMEDY ESSENTIAL ZINC PASTE 113 GM TOP SCH (09:12)
[2022-04-24] MEDS: HEPARIN SODIUM,PORCINE 5,000 UNITS/ML VIAL SQ SCH (09:12)
--- NOTE | 2022-04-24 09:12 | NUR ---
Patient no longer has a NGT. Will continue to monitor.
--- NOTE | 2022-04-24 10:35 | NUR ---
While preparing pt for pickup notices redness behind right ear and skin behind left ear is slightly open. Used OptiFoam to take pressure off ears likely from nasal cannula. Endorse to the EMT team who is already on site to roller picker patient.
--- NOTE | 2022-04-24 10:55 | NUR ---
Patient picked up by ambulance. Report was called and given to Dominic at [facility] on 04/23. I called to give report again and was told there was no need for a report. There was none of the items on the pt belongings list in his room. All paperwork given to the EMT. IV removed and pressure dressing applied. ID band removed. All medications given as ordered.
== END 2022-04-24 10:55 | DRG 816 ==
LOC: EDBD 16:52 → ER 16:52 → ICUOV2 21:28 → CCU 21:30 → ICUOV2 22:02 → CCU 22:03 → TRANSITION 04-16 08:42 → CCU 04-17 21:29 → TELE3 04-21 16:19
PROVIDERS: ADMIT Nurse Practitioner Acute Care; ATTEND Internal Medicine
PROC: 0BH17EZ Insertion of Endotracheal Airway into Trachea, Via Natural or Artificial Opening (ICD-10-PCS; principal; 2022-04-03)
PROC: 5A1955Z Respiratory Ventilation, Greater than 96 Consecutive Hours (ICD-10-PCS; principal; 2022-04-03)
PROC: 06HM33Z Insertion of Infusion Device into Right Femoral Vein, Percutaneous Approach (ICD-10-PCS; principal; 2022-04-03)
PROC: B54BZZA Ultrasonography of Right Lower Extremity Veins, Guidance (ICD-10-PCS; principal; 2022-04-03)
DX: T40.5X1A Poisoning by cocaine, accidental (unintentional), initial encounter (principal); J96.01 Acute respiratory failure with hypoxia; N17.0 Acute kidney failure with tubular necrosis; K72.00 Acute and subacute hepatic failure without coma; I63.9 Cerebral infarction, unspecified; J69.0 Pneumonitis due to inhalation of food and vomit; A41.9 Sepsis, unspecified organism; G92.8 Other toxic encephalopathy; J15.9 Unspecified bacterial pneumonia; E87.2 Acidosis; R65.21 Severe sepsis with septic shock; E88.09 Other disorders of plasma-protein metabolism, not elsewhere classified; M62.82 Rhabdomyolysis; E87.6 Hypokalemia; G93.1 Anoxic brain damage, not elsewhere classified; R74.01 Elevation of levels of liver transaminase levels; T40.411A Poisoning by fentanyl or fentanyl analogs, accidental (unintentional), initial encounter; Y92.89 Other specified places as the place of occurrence of the external cause; F19.10 Other psychoactive substance abuse, uncomplicated; J90 Pleural effusion, not elsewhere classified; I21.A1 Myocardial infarction type 2; K76.0 Fatty (change of) liver, not elsewhere classified; E66.9 Obesity, unspecified; Z68.20 Body mass index [BMI] 20.0-20.9, adult
CPT/HCPCS: 36415; 36600; 70450; 71045; 76700; 82533; 83605; 83735; 83970; 84100; 84155; 84156; 84165; 84300; 84478; 84484; 85025; 87040; 87070; 87077; 87086; 93005; 93307; 94002; 94003; 94640; 97161; 99082-TC; A4663; A6209; C9113; G0378; G0480; J0330; J0696; J1644; J1720; J2060; J2270; J2310; J2405; J2543; J3370; J3475; J3480; J3490; J7040; J7050; J7060; J7070